=== PATIENT | male | born 1935 | race Caucasian/White ===

== ENCOUNTER 2021-06-28 20:35 | Observation (INO) | payer MEDICARE, SELFPAY ==
[2021-06-28 20:04] VITALS: BP 152/74; PULSE 82; RESP 20; TEMP 36.5; O2SAT 100; BMI 25.2
--- NOTE | 2021-06-28 20:51 | PCM.HP.STD ---
Documented by User: LAUREN Franklin 06/28/21 21:10 HPI - General General Date of Admission: 06/28/21 Date of Service: 06/28/21 Chief Complaint: Bleeding wound right buttock HPI Narrative ALLIE WINKLER, is a 85 M who presents from an outside ER due to bleeding. Patient's found patient lying in bed and noted that patient had a large amount of blood coming from his buttock/rectum and transported patient to [facility]. Physician at [facility] was not confident that the blood was coming from the [place] wound and they do not have GI coverage so he was transferred to [place]. Upon evaluation patient's wound is not currently bleeding however there is some purulent drainage noted. Patient also has a wound to his right ankle for which she was post be seen at the wound center tomorrow. Patient has a medical history that includes diabetes, A. fib, hyperlipidemia. [facility] Medical History Atrial fibrillation Dementia Diabetes Hyperlipidemia Home Medications apixaban [Eliquis] 5 mg PO BID 06/28/21 [History Last Taken 06/28/21] metformin 500 mg PO BIDCM 06/28/21 [History Last Taken 06/28/21] pravastatin 40 mg PO QHS 06/28/21 [History Last Taken 06/27/21] Allergy/AdvReac Type Severity Reaction Status Date / Time No Known Allergies Allergy Verified 06/28/21 20:11 Family History unable to obtain unable to obtain Surgical History H/O tooth extraction Social History Smoking Status: Never smoker ROS Constitutional Constitutional: Denies anorexia, chills, fatigue, malaise or weakness ENT HEENT: Reports hearing loss Cardiovascular Cardiovascular: Denies chest pain, edema, palpitations or syncope Respiratory/Chest Respiratory/Chest: Denies cough, shortness of breath at rest, shortness of breath with exertion or wheezing Gastrointestinal Gastrointestinal: Denies abdominal pain, constipation, diarrhea, melena, nausea or vomiting Genitourinary Genitourinary: Denies dysuria or hematuria Musculoskeletal Musculoskeletal: Denies back pain, extremity pain, joint pain or joint stiffness Integumentary Integumentary: Denies dry skin Neurologic Neurologic: Denies abnormal gait or abnormal speech Psychiatric Psychiatric: Reports cognitive impairment; Denies anxiety or depression Endocrine Endocrinology: Denies change in body appearance Hematologic/Lymphatic Hematologic/Lymphatic: Reports easy bleeding; Denies anemia Vital Signs Vital Signs Vital Signs: 06/28/21 20:04 Temperature 97.7 F L Temperature Source Oral Pulse Rate 82 Respiratory Rate 20 H Blood Pressure 152/74 H Blood Pressure Mean 100 Blood Pressure Source Monitor Blood Pressure Position Semi-Fowlers Blood Pressure Location Right Arm Pulse Ox 100 Oxygen Delivery Method Room Air Weight Weight: 186 lb 8.177 oz Body Mass Index (BMI) 25.2 Physical Exam Const alert and no apparent distress General Appearance: cooperative Orientation / Consciousness: oriented to person and confused Exam Limitations: altered mental status HEENT normocephalic and head/scalp atraumatic Eyes conjunctivae normal and no scleral icterus Neck supple General: trachea midline Lymph Lymphatic: no lymphadenopathy noted Resp normal respiratory effort, normal air movement and clear to auscultation bilaterally Cardio S1 normal heart sound, S2 normal heart sound and peripheral pulses 2+ throughout Rhythm: abnormal rhythm irregularly irregular GI normal to inspection, nondistended, normoactive bowel sounds, soft to palpation and non-tender Extremity normal capillary refill and no clubbing, cyanosis or edema General Extremity: no tenderness to palpation of joints or extremities Skin Skin Narrative: 5 x 6 sacral wound, no longer bleeding however there is a small amount of purulent drainage noted. Large reddened area to lateral side of right ankle, nondraining, peeling. General Skin Exam: turgor normal Neuro no focal motor deficits and no sensory deficits noted Speech: speech normal Motor Exam: Negative for general weakness Psych cooperative Appearance: appropriate Attitude: calm Speech: loud Results Lab / Micro Data Result Diagrams: 06/29/21 04:52 06/29/21 04:52 Assessment & Plan Assessment/Plan (1) Wound of left buttock: QUALIFIERS: Encounter type: initial encounter Qualified Code(s): S31.829A - Unspecified open wound of left buttock, initial encounter (2) Cellulitis of right ankle: PLAN: 1. Wound of left buttock -Admit to [facility] -Wound nurse consulted -Dry sterile dressing changes ordered pending wound nurse consult -Area does not appear to be actively bleeding at this time. -Will trend hemoglobin and hematocrit every 4 hours -Patient received vancomycin and Zosyn at outside facility, will continue pending culture results. -Pain medication regimen ordered including Tylenol, oxycodone -MRSA and wound culture ordered -CBC, BMP, mag, Phos ordered for a.m. -Laboratory values reviewed from outside facility: Hemoglobin and hematocrit 11.8/35.8, platelet 273, white blood cell count 8.5, PTT 33, PT 18.1, INR 1.6, glucose 171, sodium 131, BUN 10, creatinine 0.85, troponin negative. Covid PCR negative, influenza AMB negative. 2. Cellulitis of the right ankle -Wound nurse consulted -Currently does not appear to be draining -Patient initiated on vancomycin and Zosyn at outside facility will continue due to multiple wounds -MRSA and wound culture ordered 3. Diabetes mellitus type 2 -We will hold patient's p.o. Metformin regimen -ACHS blood sugars with sliding scale insulin ordered 4. Hyperlipidemia -Continue pravastatin 5. Atrial fibrillation -Patient not currently on a rate control medication however patient is on Eliquis which will be held due to bleeding wound to sacrum DVT prophylaxis-not indicated due to bleeding This patient was seen by LAUREN Franklin under the supervision of Dr. Garcia. 33 minutes spent in clinical coordination of patient's plan of care. Documented by User: Dr. Steven Garcia MD 06/29/21 06:23 HPI - General General Date of Admission: 06/28/21 [facility] Medical History Atrial fibrillation Dementia Diabetes Hyperlipidemia Home Medications apixaban [Eliquis] 5 mg PO BID 06/28/21 [History Last Taken 06/28/21] metformin 500 mg PO BIDCM 06/28/21 [History Last Taken 06/28/21] pravastatin 40 mg PO QHS 06/28/21 [History Last Taken 06/27/21] Allergy/AdvReac Type Severity Reaction Status Date / Time No Known Allergies Allergy Verified 06/28/21 20:11 Family History unable to obtain Surgical History H/O tooth extraction Social History Smoking Status: Never smoker Results Lab / Micro Data Result Diagrams: 06/29/21 04:52 06/29/21 04:52 Charges/Coding Addendum Addendum: Patient seen and examined agree with above assessment plan
[2021-06-28 22:01] LABS: Bedside Glucose 156 mg/dL (70-110)
[2021-06-28] MEDS: Glucerna Shake 120 ML LIQUID PO (22:01)
[2021-06-28] MEDS: Pravastatin 40 MG Tablet PO (22:02)
--- NOTE | 2021-06-28 22:28 | PHA.PHARE_ITS ---
Consult Pharmacy has been consulted to manage selected antiobiotic: Vancomycin Type of Consult: New start Suspected Infection: Skin/Soft tissue Prior Doses of Antibiotics Received/Current Regimen: Medications Vancomycin HCl (Vancomycin) 1,000 mg in 200 mls @ 200 mls/hr IV Q12H ALDO Weight used for dosin.6 kg Estimated Creatinine Clearance: 78 Goal Trough: 10-15 mcg/mL Pharmacy Plan for Drug Dosing: An initial vancomycin dose of 1500mg was given at [facility] 06/28/21 @1609. Dosing was continued from this at 1000mg q12h. A trough level will be drawn prior to 4th total dose. Pharmacy Service will continue to monitor and adjust dosing as required. Follow-Up Labs: Trough Vancomycin Labs to be done on [date and time ordered]: 06/30/21 @0331
[2021-06-28 22:43] LABS: Hemoglobin 11.5 g/dL (13.0-16.5)
[2021-06-28 23:12] LABS: M R Staph aureus DNA By PCR Negative (Negative); Probe Check PASS; Specimen Processing Control PASS; Staph aureus DNA By PCR NEGATIVE (Negative)
[2021-06-28 23:13] LABS: M R Staph aureus DNA By PCR Negative (Negative); Probe Check PASS; Specimen Processing Control PASS; Staph aureus DNA By PCR NEGATIVE (Negative)
[2021-06-29] VITALS (8 sets, daily range): BP systolic 99–126; BP diastolic 56–71; PULSE 71–81; RESP 16–18; TEMP 36.6–37.2; O2SAT 94–97
[2021-06-29 00:15] LABS: Hematocrit 31.6 % (40-54); Hemoglobin 10.7 g/dL (13.0-16.5)
[2021-06-29] MEDS: 0.9% Saline Lock 10 ML Syringe IV (04:10)
[2021-06-29] MEDS: Vancomycin IV 1,000 MG/200 ML BAG 200 MG IV ×2 (04:10→15:34)
[2021-06-29 05:00] LABS: Absolute Lymphocyte Count 1.46 X10^3/uL (0.83-4.51); Absolute Neutrophil Count 5.7 X10^3/uL (2.0-7.7); Basophil# 0.02 X10^3/uL; Basophil% 0.2 % (0-1); Eosinophil# 0.15 X10^3/uL; Eosinophils% 1.9 % (0-5); Hematocrit 33.1 % (40-54); Hemoglobin 11.2 g/dL (13.0-16.5); Lymphocyte # 1.46 X10^3/ul (0.83-4.51); Lymphocyte % 18.2 % (19-41); Mean Corp Hgb Conc 33.8 g/dL (32-36); Mean Corpuscular Hgb 31.5 pg (27.0-32.0); Mean Platelet Vol. 8.2 fl (6.2-12.0); Monocyte# 0.69 X10^3/uL; Monocyte% 8.6 % (0-10); NRBC Flagged by Analyzer 0 % (0-5); Neutrophil # 5.67 X10^3/uL (2.7-7.7); Neutrophil % 70.6 % (47-70); Platelet Count 254 K/mm3 (150-450); RBC Distribution Width CV 12.7 % (11.6-14.6); RBC Distribution Width SD 42.8 fl (35.1-43.9); Red Blood Count 3.56 M/mm3 (4.6-6.2)
[2021-06-29 05:30] LABS: Anion Gap 5 (5-15); BUN 11 mg/dL (7-18); BUN/Creat Ratio 11.6 RATIO (10-20); Calcium,Total 7.6 mg/dL (8.5-10.1); Chloride 103 mmol/L (98-107); Creatinine, Serum 0.95 mg/dL (0.70-1.30); EST Glomerular Filtration Rate 80 mL/min (>60); Est Glom Filt Rate - Afr Amer 97 mL/min (>60); Estimated Creatinine Clearance 64.67 ml/min; Glucose 164 mg/dL (74-106); Phosphorus 2.9 mg/dL (2.5-4.9); Potassium 3.8 mmol/L (3.5-5.1); Sodium Level 135 mmol/L (136-145)
[2021-06-29] MEDS: Insulin Lispro 100 UNIT/ML INSULN.PEN SC ×4 (06:44→20:58)
[2021-06-29 06:51] LABS: Bedside Glucose 230 mg/dL (70-110)
--- NOTE | 2021-06-29 07:08 | PCM.PN.HOSP ---
Subjective Subjective Patient is an 85-year-old gentleman who was admitted directly from [facility] with suspected GI bleed patient however was found to have bleeding from his. In region wounds. Admitted to regular nursing floor with consult placed wound care nurse Objective Data Objective Data Vital Signs: Vital Signs Temp Pulse Resp BP Pulse Ox 99 F 71 18 121/66 H 96 06/29/21 02:39 06/29/21 02:39 06/29/21 02:39 06/29/21 02:39 06/29/21 02:39 Oxygen Delivery Method Room Air Weight: 84.6 kg Body Mass Index (BMI) 25.2 Intake & Output: Intake and Output for Last 24 Hours 06/27/21 06/28/21 06/29/21 23:59 23:59 23:59 Intake Total 620 / 620 Balance 620 / 620 Lab / Micro Data Result Diagrams: 06/29/21 04:52 06/29/21 04:52 Labs: Laboratory Results - last 24 hr 06/28/21 21:35: S.aureus Protein A PCR NEGATIVE, MRSA (PCR) Negative 06/28/21 21:50: S.aureus Protein A PCR NEGATIVE, MRSA (PCR) Negative 06/28/21 21:54: POC Glucose 156 H 06/28/21 22:15: Hgb 11.5 L, Hct 35.0 L 06/29/21 00:12: Hgb 10.7 L, Hct 31.6 L 06/29/21 04:52: WBC 8.0, RBC 3.56 L, Hgb 11.2 L, Hct 33.1 L, MCV 93.0, MCH 31.5, MCHC 33.8, RDW Std Deviation 42.8, RDW Coeff of Dwain 12.7, Plt Count 254, MPV 8.2, Immature Gran % (Auto) 0.500, Neut % (Auto) 70.6 H, Lymph % (Auto) 18.2 L, [place] % (Auto) 8.6, Eos % (Auto) 1.9, Baso % (Auto) 0.2, Absolute Neuts (auto) 5.7, Absolute Lymphs (auto) 1.46, Nucleated RBC % 0 06/29/21 04:52: Sodium 135 L, Potassium 3.8, Chloride 103, Carbon Dioxide 27.0, Anion Gap 5, BUN 11, Creatinine 0.95, Estim Creat Clear Calc 64.67, Est GFR (MDRD) Af Amer 97, Est GFR (MDRD) Non-Af 80, BUN/Creatinine Ratio 11.6, Glucose 164 H, Calcium 7.6 L, Phosphorus 2.9, Magnesium Cancelled 06/29/21 06:39: POC Glucose 230 H Physical Exam Narrative GENERAL: cooperative HEENT: Atraumatic; EYES; Anicteric, Normal Conjunctiva NECK; supple, normal thyroid, RESPIRATORY: Diminished to auscultation CARDIOVASCULAR: Regular S1 S2, GI: soft, normoactive bowel sounds, : No Renal angle tenderness; EXTREMITIES: No edema, no clubbing, MUSCULOSKELETAL: no muscle wasting NEURO: Awake; no lateralizing signs. SKIN: Perianal region wounds dressed PSYCH; Flat affect Assessment & Plan Assessment/Plan (1) Wound of left buttock: QUALIFIERS: Encounter type: initial encounter Qualified Code(s): S31.829A - Unspecified open wound of left buttock, initial encounter (2) Cellulitis of right ankle: PLAN: Patient is an 85-year-old gentleman who was admitted directly from [facility] with suspected GI bleed patient however was found to have bleeding from his. In region wounds. Admitted to regular nursing floor with consult placed wound care nurse 1. 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 Admitted to regular nursing floor for wound and dressing changes with consultation placed to wound care nurse. Suspected cellulitis involving the right ankle ?Patient was started on antibiotics per protocol with cultures obtained. Patient MRSA screen was negative vancomycin is continued 3. Diabetes mellitus type II -patient's oral hypoglycemics held. Placed on long acting insulin, Accu-Cheks a.c. and at bedtime and covered with sliding scale insulin 4. Dyslipidemia -Patient is on statin therapy, continued at home dose 5. Paroxysmal A. fib -patient's rate is controlled on apixaban held in view of significant bleeding from his wounds 6. DVT prophylaxis ?Patient was on apixaban held in view of above Charges/Coding Visit Charges Inpatient E&M: 03829 Subs Hosp L2
[2021-06-29] MEDS: Glucerna Shake 120 ML LIQUID PO ×4 (09:16→20:57)
[2021-06-29 11:31] LABS: Bedside Glucose 214 mg/dL (70-110)
--- NOTE | 2021-06-29 11:38 | NURSING ---
multiple layers of dried skin flaking off
--- NOTE | 2021-06-29 11:45 | CASEMGMT ---
RN CM Face to Face with patient for initial transition planning/care coordination assessment. RN CM introduced self and role at [facility]. Patient sitting in chair, alert and oriented, at bedside. Patient willing to participate in assessment and is able to answer all questions appropriately. Care providers, pharmacy, and demographics verified. Patient and wish for patient to discharge home with possible HHC. If patient is needing assistance with transfers or ambulation, states she is not able to help and prefers patient to go to SNF. Will monitor progress with therapy to determine safe discharge disposition. Patient and state they have no further needs or concerns at this time. CM to follow for discharge planning needs that may arise. PCP: Cecille Specialists: [facility] Gynecology Physician Preferred Pharmacy: [facility] Insurance: [employer] ROBIN Prescription Benefit: yes Living Will/HPOA: yes, Chinyere OCHOAOK: , sister in law Living Arrangements: Patient lives with in a single story home with 5 steps and railing to enter the home. Patient was independent at home prior to present illness Transportation: , sister in law DME/HHC: Patient has raised toilet, built in shower seat, and walker. No previous HHC or SNF Disposition Plan: HHC vs SNF pending course of treatment and progress with therapy. Jessika WARNER, RN, CM
--- NOTE | 2021-06-29 14:48 | CASEMGMT ---
RN CM in to pt room, pt sitting up in chair. Patient was provided a list of [facility] providers including quality and resource use data and consistent with the patient?s preferred geographic region, medical needs, and insurance network should pt need. Pt states this RN CM will need to speak to his regarding this when time for a decision is to be made. Pt very [place].
[2021-06-29] MEDS: Juven (unflavored) Packet 1 PACKET PO (16:17)
[2021-06-29 16:25] LABS: Bedside Glucose 227 mg/dL (70-110)
[2021-06-29] MEDS: Pravastatin 40 MG Tablet PO (20:58)
[2021-06-29 21:56] LABS: Bedside Glucose 169 mg/dL (70-110)
[2021-06-30 03:17] VITALS: BP 112/42; PULSE 88; RESP 18; TEMP 36.8; O2SAT 95
[2021-06-30] MEDS: Vancomycin IV 1,000 MG/200 ML BAG 200 MG IV (03:53)
[2021-06-30] MEDS: 0.9% Saline Lock 10 ML Syringe IV ×2 (03:54→09:50)
[2021-06-30 04:11] LABS: Vancomycin, Trough Level 17.8 ug/mL (5.0-15.0)
[2021-06-30] MEDS: Insulin Lispro 100 UNIT/ML INSULN.PEN SC ×2 (06:20→11:23)
--- NOTE | 2021-06-30 06:26 | PCM.RX.CS ---
Consult Pharmacy has been consulted to manage selected antiobiotic: Vancomycin Type of Consult: Follow-up Suspected Infection: Skin/Soft tissue Prior Doses of Antibiotics Received/Current Regimen: Medications Vancomycin HCl (Vancomycin) 1,000 mg in 200 mls @ 200 mls/hr IV Q12H ALDO Last Admin: 06/30/21 05:36 Dose: Infused Documented by: Labs: Sodium 135 mmol/L (136-145) L 06/29/21 04:52 Potassium 3.8 mmol/L (3.5-5.1) 06/29/21 04:52 Chloride 103 mmol/L (98-107) 06/29/21 04:52 Carbon Dioxide 27.0 mmol/L (21.0-32.0) 06/29/21 04:52 Anion Gap 5 (5-15) 06/29/21 04:52 BUN 11 mg/dL (7-18) 06/29/21 04:52 Creatinine 0.95 mg/dL (0.70-1.30) 06/29/21 04:52 Est GFR (MDRD) Af Amer 97 mL/min (>60) 06/29/21 04:52 Est GFR (MDRD) Non-Af 80 mL/min (>60) 06/29/21 04:52 BUN/Creatinine Ratio 11.6 RATIO (10-20) 06/29/21 04:52 Glucose 164 mg/dL (74-106) H 06/29/21 04:52 Vancomycin Trough 17.8 ug/mL (5.0-15.0) H 06/30/21 03:40 Microbiology: Microbiology 06/28/21 21:50 Wound - Buttock Gram Stain - Final 06/28/21 21:50 Wound - Buttock Wound Culture - Preliminary No growth-Final to follow 06/28/21 21:35 Wound - Leg, Right Gram Stain - Final Weight used for dosin.6 kg Estimated Creatinine Clearance: 65 Goal Trough: 10-15 mcg/mL Pharmacy Plan for Drug Dosing: Vancomycin trough level of 17.8 was higher than the target range of 10-15. Level was drawn 12hrs post dose. Will continue same dosing of 1000mg q12h, and see if CrCl corrects back upward. Will re-draw a trough level in 2 days. Pharmacy Service will continue to monitor and adjust dosing as required. Follow-Up Labs: Trough Vancomycin Labs to be done on [date and time ordered]: 07/01/21 @5826
[2021-06-30 06:36] LABS: Bedside Glucose 152 mg/dL (70-110)
--- NOTE | 2021-06-30 07:40 | PCM.PN.HOSP ---
Subjective Subjective Patient has not experienced further bleeding from his wounds. Plans for patient to be discharged home with home health Objective Data Objective Data Vital Signs: Vital Signs Temp Pulse Resp BP Pulse Ox 98.2 F 88 18 112/42 L 95 06/30/21 03:17 06/30/21 03:17 06/30/21 03:17 06/30/21 03:17 06/30/21 03:17 Oxygen Delivery Method Room Air Weight: 84.6 kg Body Mass Index (BMI) 25.2 Intake & Output: Intake and Output for Last 24 Hours 06/28/21 06/29/21 06/30/21 23:59 23:59 23:59 Intake Total 1137.25 / 1137.25 339.25 / 339.25 Balance 1137.25 / 1137.25 339.25 / 339.25 Lab / Micro Data Result Diagrams: 06/29/21 04:52 06/29/21 04:52 Labs: Laboratory Results - last 24 hr 06/29/21 11:18: POC Glucose 214 H 06/29/21 16:16: POC Glucose 227 H 06/29/21 20:56: POC Glucose 169 H 06/30/21 03:40: Vancomycin Trough 17.8 H 06/30/21 06:18: POC Glucose 152 H Micro: Microbiology 06/28/21 21:50 Wound - Buttock Gram Stain - Final 06/28/21 21:50 Wound - Buttock Wound Culture - Preliminary No growth-Final to follow 06/28/21 21:35 Wound - Leg, Right Gram Stain - Final Physical Exam Narrative GENERAL: cooperative HEENT: Atraumatic; EYES; Anicteric, Normal Conjunctiva NECK; supple, normal thyroid, RESPIRATORY: Diminished to auscultation CARDIOVASCULAR: Regular S1 S2, GI: soft, normoactive bowel sounds, : No Renal angle tenderness; EXTREMITIES: No edema, no clubbing, MUSCULOSKELETAL: no muscle wasting NEURO: Awake; no lateralizing signs. SKIN: Perianal region wounds dressed PSYCH; Flat affect Assessment & Plan Assessment/Plan (1) Wound of left buttock: QUALIFIERS: Encounter type: initial encounter Qualified Code(s): S31.829A - Unspecified open wound of left buttock, initial encounter (2) Cellulitis of right ankle: PLAN: Patient is an 85-year-old gentleman who was admitted directly from [facility] with suspected GI bleed patient however was found to have bleeding from his. In region wounds. Admitted to regular nursing floor with consult placed wound care nurse 1. 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 Admitted to regular nursing floor for wound and dressing changes with consultation placed to wound care nurse. - Patient has not experienced further bleeding from his wounds. Plans for patient to be discharged home with home health 2. Suspected cellulitis involving the right ankle ?Patient was started on antibiotics per protocol with cultures obtained. Patient MRSA screen was negative vancomycin is continued 3. Diabetes mellitus type II -patient's oral hypoglycemics held. Placed on long acting insulin, Accu-Cheks a.c. and at bedtime and covered with sliding scale insulin 4. Dyslipidemia -Patient is on statin therapy, continued at home dose 5. Paroxysmal A. fib -patient's rate is controlled on apixaban held in view of significant bleeding from his wounds 6. DVT prophylaxis ?Patient was on apixaban held in view of above 8. Anemia ?Secondary to acute blood loss anemia from above patient did not require blood transfusion Charges/Coding Visit Charges Inpatient E&M: 69494 Subs Hosp L2
[2021-06-30 07:59] VITALS: BP 114/68; PULSE 73; RESP 23; TEMP 36.4; O2SAT 94
[2021-06-30 08:32] VITALS: O2SAT 95
[2021-06-30] MEDS: Glucerna Shake 120 ML LIQUID PO ×2 (09:32→13:34)
[2021-06-30] MEDS: Juven (unflavored) Packet 1 PACKET PO (09:32)
--- NOTE | 2021-06-30 10:02 | WOUNDNOTE ---
wound photo: bilateral buttocks
--- NOTE | 2021-06-30 10:12 | PCM.DC.SUM ---
Providers Date of Admission: 06/28/21 Primary Care Physician: Dr. Graeme Oden MD Consultations 06/28/21 20:55 Consult: Onc/Wound/entertainment usher Routine Comment: Reason for Consult:: wound buttock Reason For Visit: RIGHT LEG CELLULITIS, BLEEDING SACRAL WOUND Diagnosis Discharge Diagnosis (1) Wound of left buttock: Status: Acute Code(s): S31.829A - Unspecified open wound of left buttock, initial encounter Qualifiers: Encounter type: initial encounter Qualified Code(s): S31.829A - Unspecified open wound of left buttock, initial encounter (2) Cellulitis of right ankle: Status: Acute Code(s): L03.115 - Cellulitis of right lower limb Medications at Discharge Home Medications metformin 500 mg PO BIDCM 06/28/21 pravastatin 40 mg PO QHS 06/28/21 cefdinir 300 mg PO BID #10 cap 06/30/21 Hospital Course Summary of Care Provided Minutes Spent on Discharge: 35 Hospital Course: Patient is an 85-year-old gentleman who was admitted directly from [facility] with suspected GI bleed patient however was found to have bleeding from his. In region wounds. Admitted to regular nursing floor with consult placed wound care nurse 1. 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 Admitted to regular nursing floor for wound and dressing changes with consultation placed to wound care nurse. - Patient has not experienced further bleeding from his wounds. Plans for patient to be discharged home with home health 2. Suspected cellulitis involving the right ankle ?Patient was started on antibiotics per protocol with cultures obtained. Patient MRSA screen was negative vancomycin is continued 3. Diabetes mellitus type II -patient's oral hypoglycemics held. Placed on long acting insulin, Accu-Cheks a.c. and at bedtime and covered with sliding scale insulin 4. Dyslipidemia -Patient is on statin therapy, continued at home dose 5. Paroxysmal A. fib -patient's rate is controlled on apixaban held in view of significant bleeding from his wounds ?Patient to follow-up with primary care physician within a week to discuss resumption of systemic anticoagulation 6. DVT prophylaxis ?Patient was on apixaban held in view of above 8. Anemia ?Secondary to acute blood loss anemia from above patient did not require blood transfusion Physical Exam Narrative GENERAL: cooperative HEENT: Atraumatic; EYES; Anicteric, Normal Conjunctiva NECK; supple, normal thyroid, RESPIRATORY: Diminished to auscultation CARDIOVASCULAR: Regular S1 S2, GI: soft, normoactive bowel sounds, : No Renal angle tenderness; EXTREMITIES: No edema, no clubbing, MUSCULOSKELETAL: no muscle wasting NEURO: Awake; no lateralizing signs. SKIN: Perianal region wounds dressed PSYCH; Flat affect Weight / BMI Weight Weight: 84.6 kg Body Mass Index (BMI) 25.2 ABG / Lab / Microbiology Data Result Diagrams: 06/29/21 04:52 06/29/21 04:52 Laboratory: Laboratory Results - last 24 hr 06/29/21 11:18: POC Glucose 214 H 06/29/21 16:16: POC Glucose 227 H 06/29/21 20:56: POC Glucose 169 H 06/30/21 03:40: Vancomycin Trough 17.8 H 06/30/21 06:18: POC Glucose 152 H Microbiology: Microbiology 06/28/21 21:50 Wound - Buttock Gram Stain - Final 06/28/21 21:50 Wound - Buttock Wound Culture - Preliminary Mixed Gram Positive Organisms 06/28/21 21:35 Wound - Leg, Right Gram Stain - Final 06/28/21 21:35 Wound - Leg, Right Wound Culture - Preliminary Mixed Gram Positive Organisms D/C Instructions Discharge Diet: No restrictions Discharge Activity: Return to Normal Activity Call your doctor if you observe: Fever of 101 or Higher, Shortness of breath, Fainting spells and Chest pain Meaningful Use Info Meaningful Use Diagnoses (Choose all that apply): None applicable Discharge Plan Admission Admit Date/Time: 06/28/21 20:35 Attending Provider: Graeme Jordan Primary Care Provider: Graeme Oden Discharge Orders/Prescriptions Prescriptions: New cefdinir 300 mg capsule 300 mg PO BID Qty: 10 RF: 0 Continued pravastatin 40 mg tablet 40 mg PO QHS RF: 0 metformin 500 mg tablet extended release 24 hr 500 mg PO BIDCM RF: 0 Discontinued Eliquis 5 mg tablet 5 mg PO BID RF: 0 Referrals / Follow Up: Graeme Oden MD [Primary Care Provider] - In 1 Week Disposition Disposition (needs filled in before D/C Order can be placed): Home Health Service Charges/Coding Visit Charges Inpatient E&M: 23112 Disch Hosp
[2021-06-30 10:34] VITALS: O2SAT 98
--- NOTE | 2021-06-30 11:34 | CASEMGMT ---
Addendum entered by Daysi Costa 06/30/21 15:13: Received acceptance from [facility], SOC will be tomorrow. Addendum entered by Daysi Costa 06/30/21 14:55: Received tc back from [place] who states they are unable to accept pt. TC to [facility], referral left on . Will await acceptance. Addendum entered by Daysi Costa 06/30/21 14:22: TC to [facility] again to see if able to accept pt. They have not heard back from their nurse. Received tc from pt who is concerned about taking pt home. She states she cannot help him much. Made her aware how pt did with PT today and that [facility] will be ordered for SN and OT. She states pt will not let her help with the wounds. BETO WOOD in to pt room to update on HHC. He states he will allow his to assist him at home. Asked if pt would be agreeable to a [facility], pt denies need for this. TC to [facility] also for referral, faxed and will await acceptance. Addendum entered by Daysi Costa 06/30/21 12:01: Received tc back from [facility] who states they are not accepting any patients out of their system. TC to [facility], the earliest SOC could be would be next week. TC to [facility], they are unable to accept pt in [facility]. TC back to [facility] for referral. Fátima will check availability and call this BETO WOOD back. Original Note: BETO WOOD in to pt room. Pt sitting up in chair. Pt is agreeable to [facility]. Noted PT did not recommend therapy but OT did. Pt has pressure ulcers. Discussed SN and OT. Pt chose [facility] first and [facility] as second choice. TC to [facility], spoke with [facility]. She asked for referral to be faxed and she will call back with acceptance.
[2021-06-30 12:15] LABS: Bedside Glucose 236 mg/dL (70-110)
[2021-06-30 13:26] LABS: MG Sendout 1.9 mg/dL (1.6-2.3)
[2021-06-30 13:39] VITALS: BP 125/64; PULSE 70; RESP 24; TEMP 36.6; O2SAT 94
--- NOTE | 2021-07-02 12:02 | CASEMGMT ---
Addendum entered by Saqib Morrissey 07/02/21 15:52: Faxed confirmation received that below faxed info to Dr Oden's office went through successfully. Original Note: Received tc from 's office requesting information regarding pt. Elisha DE LUNA asked if SW saw pt during hospital stay. Made her aware that RN CM saw pt but not SW. She asked for notes from RN CM, faxed at this time. Also gave her a synopsis of services pt was set up with at home.
== END 2021-06-30 16:28 | disposition home health service (06) | DRG 603 ==
PROVIDERS: Family Medicine; Nurse Practitioner Family; Admitting Provider Internal Medicine; PCP Family Medicine; Visit Provider Internal Medicine
DX: L03.115 Cellulitis of right lower limb (principal); F03.90 Unspecified dementia, unspecified severity, without behavioral disturbance, psychotic disturbance, mood disturbance, and anxiety; I48.0 Paroxysmal atrial fibrillation; E11.9 Type 2 diabetes mellitus without complications; E78.5 Hyperlipidemia, unspecified; S31.829A Unspecified open wound of left buttock, initial encounter; Z79.84 Long term (current) use of oral hypoglycemic drugs; Z79.01 Long term (current) use of anticoagulants; Z79.899 Other long term (current) drug therapy; D62 Acute posthemorrhagic anemia
CPT/HCPCS: 36415; 80048; 80202; 82962; 83735; 84100; 85014; 85018; 85025; 87070; 87077; 87186; 87205; 87640; 96365; 96366; 97161; 97166; 97530; 97535; 97802; 99218; J7050; A4216; G0378; G0379

== ENCOUNTER 2021-08-12 11:00 | Outpatient (RCR) | payer MEDICARE, SELFPAY ==
--- NOTE | 2021-07-22 13:20 | HP.PCM_ITS ---
History of Present Illness Date of Service: 07/22/21 Chief Complaint: Right lateral leg wound History of Wound: This is a 85-year-old male who presents to the wound care clinic for a right lateral leg wound and chronic dry skin to bilateral legs complicated by dementia and diabetes mellitus type 2. He presents with his son today and states they were seeing a steam fitter helper in [place] who prescribed a hydrating lotion to be applied to both feet and legs twice a day. Son states that his dad was admitted to the hospital for a sacral wound and they suggested he follow-up upon discharge in the wound care center for his right lateral leg wound. Patient's son states that his dad will not apply the lotion and does not like to shower likely due to his progressing dementia. Patient denies any nausea, vomiting, fever, chills or other constitutional symptoms. Son states that his dad does not demonstrate any nausea, vomiting, fever that he is aware of. Son states that he has difficulty caring for his dad as he is not living in the same household. He states that his mother is also unable to care for his father as she is aging as well. They have no other complaints today. [facility] Medical History (Updated 07/22/21 @ 13:[address] Warren Da Silva, DPToro) Atrial fibrillation Dementia Diabetes Hyperlipidemia Home Medications metformin 500 mg PO BIDCM 06/28/21 [History Last Taken 06/28/21] pravastatin 40 mg PO QHS 06/28/21 [History Last Taken 06/27/21] cefdinir 300 mg PO BID #10 cap 06/30/21 [Rx Last Taken Unknown] Allergy/AdvReac Type Severity Reaction Status Date / Time No Known Allergies Allergy Verified 06/28/21 20:11 Surgical History H/O tooth extraction Social History Smoking Status: Never smoker ROS Constitutional Constitutional: Denies chills, fatigue, fever(s) or weakness Eyes Eyes: Denies blurry vision, change in vision or double vision ENT HEENT: Denies headache(s), nasal congestion, nasal discharge or sore throat Cardiovascular Cardiovascular: Denies chest pain, dyspnea or palpitations Respiratory/Chest Respiratory/Chest: Denies cough, shortness of breath at rest or wheezing Gastrointestinal Gastrointestinal: Denies abdominal pain, constipation, diarrhea, nausea or vomiting Musculoskeletal Musculoskeletal: Denies joint pain, joint stiffness, joint swelling or tingling Integumentary Integumentary: Reports dry skin; Denies jaundice, lesions, pruritus or rash Neurologic Neurologic: Reports behavior changes, confusion, memory loss and other Details: Son states his father has dementia ; Denies numbness, seizures or tingling Psychiatric Psychiatric: Denies anxiety or depression Endocrine Endocrinology: Denies cold intolerance or heat intolerance Hematologic/Lymphatic Hematologic/Lymphatic: Denies easy bleeding or easy bruising Physical Exam Const alert and no apparent distress General Appearance: cooperative and comfortable HEENT normocephalic Eyes General Eye: normal appearance of both eyes Neck General: normal visual inspection Lymph Lymphatic: no lymphadenopathy noted and no lymphedema noted Chest inspection of chest normal Resp normal respiratory effort Cardio regular rate and regular rhythm Extremity Peripheral Pulses: Yes posterior tibial pulses present bilateral and dorsalis pedis pulses present bilateral Skin no rashes or lesions noted Skin Narrative: Severely xerotic skin noted dorsal foot and digits extending proximally to the mid tibial shaft bilaterally. Right anterior lateral lower extremity abrasions are stable with no localized signs of infection. Rubor noted bilateral lower extremities about the mid tibial shaft. General Skin Exam: elasticity normal, atrophy and dry skin Wound Narrative: Multiple abrasions right lower extremity anterior lateral are stable with no localized signs of infection with surrounding rubor. Neuro moves all extremities Motor Exam: strength 5/5 throughout Debridement Note Debridement Note No debridement was completed: No debridement was completed today Assessment/Plan Assessment/Plan (1) Abrasion, right lower leg, initial encounter: CODE(S): S80.811A - Abrasion, right lower leg, initial encounter (2) Acute venous stasis dermatitis of both lower extremities: CODE(S): I87.2 - Venous insufficiency (chronic) (peripheral) (3) Xerosis cutis: CODE(S): L85.3 - Xerosis cutis (4) Dementia: CODE(S): F03.90 - Unspecified dementia without behavioral disturbance (5) Diabetes: CODE(S): E11.9 - Type 2 diabetes mellitus without complications PLAN: This is an 85-year-old male with right lateral leg wound and chronic dry skin to bilateral legs complicated by dementia and diabetes mellitus type 2. He is present with his son today who cites progressing difficulty in caring for his father as his father refuses to shower and be compliant in taking his medications. Multiple right anterior lateral leg abrasions noted to be stable with no erythema, purulent drainage, malodor, or other localized signs of infection. Bilateral lower extremities demonstrate localized rubor about the mid tibial shaft with chronic severe xerosis to the lower extremities and dorsal foot. I discussed with the son that he is to be applying a hydrating lotion to the lower legs and foot twice a day but not to place the lotion between the toes. Son states that he was seeing a steam fitter helper in [place] who had prescribed a hydrating lotion that they are to order picker/assembler today. I discussed with him that the abrasion sites are stable with no localized signs of infection and they are to continue dressing the sites with Adaptic dry sterile dressings daily and to add Tubigrip compression socks to aid in edema control. He is to continue with the Tubigrip compression stockings daily. He is to continue to remain active and walking and to dorsiflex and plantarflex the foot to aid in blood and fluid return via the calf muscle. He is also to elevate the lower extremities at times of rest. I discussed with his son that he is to try his best in getting his dad daily showers/baths to remove excess dried skin buildup and to keep the wound sites clean. I discussed he is to dry well between his toes following shower or bath. I discussed that his dad is to keep good nutritional status and to ensure his dad has adequate fluid intake to allow for proper hydration. I discussed with good hydration and applying twice daily hydrating lotion that he could get the dry skin to resolve. I discussed with the son localized signs of infection to observe for. He is instructed if he notices increased redness moving up the leg towards the knee, increased pain, purulent drainage from the abrasion sites, malodor, or other localized signs of infection or if he notices any fever, nausea, vomiting, increased pain not controlled by [id number] pain medications to report to the ED as these are signs of a progressing infection. Patient's son voices understanding of this. Patient has palpable pedal pulses bilaterally. I will continue to monitor patient's progress in the wound center. I reviewed and discussed his case today. Debridement was performed today as noted in the clinical panel to all of the ulcer sites. The following work up and care recommendations were made: Dressing: Adaptic dry sterile dressings and Tubigrip stocking right lower extremity, Tubigrip stocking left lower extremity Wash: Soap and water Tissue growth optimization: None Offload: Tubigrip stocking Vascular: Palpable pedal pulses bilaterally Edema: Tubigrip stocking and elevation of the lower extremities at times of rest Infection: No localized signs of infection Pain: Patient may take [id number] Tylenol extra strength for any pain or discomfort Host factors: Diabetes mellitus type 2, dementia I answered all the patient's questions. To return to the wound healing center in 2 weeks or call sooner if the patient has any questions or concerns. The problems addressed require a low medical decision making level which includes two or more minor problems, a stable chronic illness, or an acute uncomplicated illness or injury. The medical decision making level is low. There is noted low risk of morbidity after considering this treatment plan and diagnostic data. Note: [employer] speech recognition dispensary attendant software was used to create portions of this document. Sound-alike and misspelled words, as well as other dispensary attendant errors may be contained in the documentation.
[2021-07-22 13:37] VITALS: BP 159/78; PULSE 85; RESP 18; TEMP 36.2; BMI 25.7
[2021-08-12 11:26] VITALS: BP 160/90; PULSE 72; RESP 16; TEMP 36.4; BMI 25.7
--- NOTE | 2021-08-12 16:08 | PN.PCM_ITS ---
History of Present Illness Date of Service: 08/12/21 Chief Complaint: Right lateral leg wound History of Wound: This is a 85-year-old male who presents to the wound care clinic for a right lateral leg wound and chronic dry skin to bilateral legs complicated by dementia and diabetes mellitus type 2. He presents with his son today and states they were seeing a program and research coordinator in [place] who prescribed a hydrating lotion to be applied to both feet and legs twice a day. Son states that his dad was admitted to the hospital for a sacral wound and they suggested he follow-up upon discharge in the wound care center for his right lateral leg wound. Patient's son states that his dad will not apply the lotion and does not like to shower likely due to his progressing dementia. Patient denies any nausea, vomiting, fever, chills or other constitutional symptoms. Son states that his dad does not demonstrate any nausea, vomiting, fever that he is aware of. Son states that he has difficulty caring for his dad as he is not living in the same household. He states that his mother is also unable to care for his father as she is aging as well. They have no other complaints today. Subjective Subjective This is an 85-year-old male who presents to the wound care clinic for a follow- up of a right lateral leg wound and chronic dry skin to bilateral legs complicated by dementia and diabetes mellitus type 2. He is accompanied by his son today who states they have been applying the lotion to the legs and dressing with compression stockings. Patient denies any nausea, vomiting, fever, chills or other constitutional symptoms. Patient and son have no complaints today. Objective Data Objective Data Vital Signs: Vital Signs Temp Pulse Resp BP 97.6 F L 72 16 160/90 H 08/12/21 11:26 08/12/21 11:26 08/12/21 11:26 08/12/21 11:26 Weight: 86.183 kg Body Mass Index (BMI) 25.7 Physical Exam Const alert and no apparent distress General Appearance: cooperative and comfortable HEENT normocephalic Eyes General Eye: normal appearance of both eyes Neck General: normal visual inspection Lymph Lymphatic: no lymphadenopathy noted and no lymphedema noted Chest inspection of chest normal Resp normal respiratory effort Cardio regular rate and regular rhythm Skin no rashes or lesions noted Skin Narrative: Severely xerotic skin noted dorsal foot and digits extending proximally to the mid tibial shaft bilaterally. Right anterior lateral lower extremity abrasions are stable with no localized signs of infection. Rubor noted bilateral lower extremities about the mid tibial shaft. General Skin Exam: elasticity normal, atrophy and dry skin Wound Narrative: Multiple abrasions right lower extremity anterior lateral are stable with no localized signs of infection with surrounding rubor. Neuro moves all extremities Motor Exam: strength 5/5 throughout Debridement Note Debridement Note No debridement was completed: No debridement was completed today Post-Debridement Measurements and Additional Note: Post-Debridement Measurements/Treatment - Nurse 1 - General Ulcer Assessment Start: 07/22/21 10:03 Freq: Status: Active Protocol: [email or web address] Activity Type Activity Date Activity User E-Sign Co-Sign Detail Recorded Client Recorded Date Recorded By Document 07/22/21 13:37 [id number] 07/22/21 13:44 Document 08/12/21 11:26 [id number] 08/12/21 11:36 07/22/21 08/12/21 13:37 11:26 - Today's Visit Information Type of service Initial Visit Follow-up Visit (Physician/[employer] [employer] [facility] ) Arrival Mode Ambulatory Ambulatory Accompanied by stepson Patient Identification Verified (Name & Yes Yes ) Patient Requires Transmission-Based No No Precautions Height and Weight Height 6 ft Weight 86.183 kg Weight in Pounds 190.0 lbs Weight Measurement Method Estimated by Patient Body Mass Index (BMI) 25.7 25.7 BMI Classification Overweight Overweight BSA - Zelda 2.08 Vital Signs Temperature (97.8 F-99.1 F) 97.1 F L 97.6 F L Temperature Source Temporal Temporal Pulse Rate (60-100) 85 72 Pulse Location Monitor Monitor Respiratory Rate (12-18) 18 16 Respiratory rate source Observation Observation Blood Pressure (90/60-120/80) 159/78 H 160/90 H Blood Pressure Mean (mm Hg) 105 113 Source Monitor Monitor Position Semi-Fowlers Semi-Fowlers Blood Pressure Location Right Arm Left Arm Have you changed medications since your No last visit? Any new allergies or adverse reactions No Signs or symptoms of abuse and/or No neglect since last visit Have you been in the hospital since your No last visit? Has dressing in place as prescribed Yes Has compression in place as prescribed Yes Has offloadiing in place as prescribed N/A Experienced any changes in pain level or No management History Since Last Visit- (Skip if this is Patient's initial visit) Left Footwear Regular Shoe Regular Shoe Right Footwear Regular Shoe Regular Shoe Pain Scale: 0-10 Numeric Is Patient Pain Free? Yes Yes Communication Assessment Preferred language Belarusian Cement Or Concrete Finishing Supervisor Required No Able to Read Yes Able to Write Yes Communication Tools None Caregiver Communication Skills Unable To Impairment Follow Commands Right Hearing Abillity Use of Hearing Aid Left Hearing Abillity Use of Hearing Aid Visual Assistive Devices Glasses Teaching Assessment Barriers to Learning Unable to Comprehend, Knowledge Deficit,Low Literacy Readiness To Learn Poor Willingness to Engage in Self Management Low Activies Readiness to Engage in Self Management Low Activities Anxiety Level Calm Cooperation Cooperative Perception Confused Interest in Health Problem Uninterested Education Importance Denies Need Does Patient Smoke tobacco or other No substances Is Patient Diabetic Yes Functional Assessment Recent Decline in Ability to Perform Denies Any Declines, Ambulation, Eating/Feeding, Lower Body Dressing, Toileting,Upper Body Dressing Culture/Sikh/Steam Fitter Cultural/Sikh Needs that may affect No Treatment Plan Would you allow our hospital finish mill operator to No meet you for the purpose of spiritual/ emotional support? Steam Fitter to contact place of anglican No Teaching: Wound Center [facility] Orientation/ Contacting Physician -Person Taught Patient,Family -Teaching Method Discussion, Demonstration -Response to teaching Return demonstration, Verbalize understanding - Nurse 1 - General Ulcer Measurement Start: 07/22/21 10:03 Freq: Status: Active Protocol: Activity Type Activity Date Activity User E-Sign Co-Sign Detail Recorded Client Recorded Date Recorded By Document 07/22/21 13:37 [id number] 07/22/21 13:44 Document 08/12/21 11:26 [id number] 08/12/21 11:36 07/22/21 08/12/21 13:37 11:26 Wound Center Nurse 1 1-right lateral leg cluster -Combined with other wound No No -Current Size (cm) - Length 6.0 0.1 -Current Size (cm) - Width 1.8 0.1 -Current Size (cm) - Depth 0.1 0.1 -Total Square Cm 10.80 0.01 -Photo Taken Yes No -Epithelialization Medium 34-66% Large 67-100% -Tunneling No No -Undermining/Tunneling No No -Circular Undermining No No -Classification - Winston Grading ( Grade 2 Diabetic Ulcer) -Exudate Amt Small -Exudate Type Serosanguineous -Wound Margin Flat & Intact -Granulation Amt Medium (34-66%) Large (67-100%) -Granulation Quality Red Red -Slough/Fibrin Yes No -Necrosis Amt Small (1-33%) -Necrotic Tissue Type Adherent Slough -Structure Exposed N/A N/A -Texture (Sophia-wound Skin Appearance) Assessed, Assessed, Localized Edema Localized Edema -Moisture (Sophia-wound Skin Appearance) Assessed,Dry/ Assessed,Dry/ Scaly Scaly -Color (Sophia-wound Skin Appearance) Assessed Assessed -Temperature (Sophia-wound Skin No Abnormality No Abnormality Appearance) (Pt Warm) (Pt Warm) -Tenderness on Palpation (Sophia-wound Yes No Skin Appearance) -Ulcer Cleansing Rinsed/ Rinsed/ Irrigated with Irrigated with Saline Saline -Foul Odor after Cleansing No -Anesthetic Used 4% Lidocaine Solution Lower Limb Edema Present Yes Yes Right Calf (cm) 35.5 36.6 Right Ankle (cm) 21.7 23.0 Left Calf (cm) 34.4 Left Ankle (cm) 22.2 WC - Nurse 2 - General Ulcer CM Notes Start: 07/22/21 10:03 Freq: Status: Active Protocol: Activity Type Activity Date Activity User E-Sign Co-Sign Detail Recorded Client Recorded Date Recorded By Document 08/12/21 13:[address] [id number] 08/12/21 13:41 PL 08/12/21 13:41 Wound Center Nurse 2 1-right lateral leg cluster -Procedure Performed No -Wound/Ulcer Outcome Healed- Epithelialized Pain Scale: 0-10 Numeric Is Patient Pain Free? Yes - Nurse 3 - General Ulcer D/C NN Start: 07/22/21 10:03 Freq: Status: Active Protocol: Activity Type Activity Date Activity User E-Sign Co-Sign Detail Recorded Client Recorded Date Recorded By Document 07/22/21 15:27 AK [id number] 07/22/21 15:29 AK 07/22/21 15:27 Wound Care Nurse 3 1-right lateral leg cluster -Ulcer Cleansing Rinsed/ Irrigated with Saline -Foul Odor after Cleansing No -Negative Pressure Wound Therapy N/A -Primary Dressing Applied Promogran Angelina Matter -Primary Dressing Covered/Secured with Dry Gauze, Secured with Tape -Promogran Angelina Matter 1 Pain Scale: 0-10 Numeric Is Patient Pain Free? Yes WC - Visit Discharge Discharge Condition Stable Ambulatory Status Ambulatory Transportation Private Auto Accompanied by son Medication Reconcilliation completed & Yes provided to patient/care provider Clinical Summary of Care Provided Yes Notes: lotion applied bilaterally Assessment/Plan Assessment/Plan (1) Abrasion, right lower leg, initial encounter: CODE(S): S80.811A - Abrasion, right lower leg, initial encounter (2) Acute venous stasis dermatitis of both lower extremities: CODE(S): I87.2 - Venous insufficiency (chronic) (peripheral) (3) Xerosis cutis: CODE(S): L85.3 - Xerosis cutis (4) Dementia: CODE(S): F03.90 - Unspecified dementia without behavioral disturbance (5) Diabetes: CODE(S): E11.9 - Type 2 diabetes mellitus without complications PLAN: This is an 85-year-old male with right lateral leg wound and chronic dry skin to bilateral legs complicated by dementia and diabetes mellitus type 2. He is present with his son today who cites progressing difficulty in caring for his father as his father refuses to shower and be compliant in taking his medications. Multiple right anterior lateral leg abrasions noted to be stable with eschar covering and no erythema, purulent drainage, malodor, or other localized signs of infection. 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 I discussed with the son that he is to continue applying a hydrating lotion to the lower legs and foot twice a day but not to place the lotion between the toes. Son states that he was seeing a program and research coordinator in [place] who had prescribed a hydrating lotion that they are using. I discussed with him that the abrasion sites are stable with no localized signs of infection. I instructed the son to continue applying daily Tubigrip compression socks to aid in edema control. He is to continue to remain active and walking and to dorsiflex and plantarflex the foot to aid in blood and fluid return via the calf muscle. He is also to elevate the lower extremities at times of rest. I discussed with his son that he is to try his best in getting his dad daily showers/baths to remove excess dried skin buildup and to keep the wound sites clean. I discussed he is to dry well between his toes following shower or bath. I discussed that his dad is to keep good nutritional status and to ensure his dad has adequate fluid intake to allow for proper hydration. I discussed with good hydration and applying twice daily hydrating lotion that he could get the dry skin to resolve. Patient has palpable pedal pulses bilaterally. At this time his wounds are healed and stable and he will be discharged from the wound care center. He is instructed to follow-up with his program and research coordinator in [place] for routine foot and ankle care. I answered all the patient and son's questions. Dr. Warren Da Silva Jr. D.P.M. Foot [facility] ankle Center [facility] [phone] The problems addressed require a low medical decision making level which includes two or more minor problems, a stable chronic illness, or an acute uncomplicated illness or injury. The medical decision making level is low. There is noted low risk of morbidity after considering this treatment plan and diagnostic data. Note: [email or web address] speech recognition education courses sales representative software was used to create portions of this document. Sound-alike and misspelled words, as well as other education courses sales representative errors may be contained in the documentation.
== END 2021-08-19 23:59 | disposition home or self-care (01) ==
LOC: WC 11:00
PROVIDERS: PCP Family Medicine; Visit Provider Nurse Practitioner Family
DX: S80.811A Abrasion, right lower leg, initial encounter (principal); F03.90 Unspecified dementia, unspecified severity, without behavioral disturbance, psychotic disturbance, mood disturbance, and anxiety; E11.9 Type 2 diabetes mellitus without complications; X58.XXXA Exposure to other specified factors, initial encounter; E78.5 Hyperlipidemia, unspecified; I87.2 Venous insufficiency (chronic) (peripheral); L85.3 Xerosis cutis; Z79.84 Long term (current) use of oral hypoglycemic drugs; Z79.899 Other long term (current) drug therapy
CPT/HCPCS: 99213; G0463

== ENCOUNTER 2021-09-10 10:45 | Outpatient (RCR) | payer MEDICARE, SELFPAY ==
[2021-08-20 00:08] VITALS: BP 160/90; PULSE 72; RESP 16; TEMP 36.4; BMI 25.7
--- NOTE | 2021-08-20 10:44 | PCM.WC.PN ---
History of Present Illness Date of Service: 08/20/21 Chief Complaint: Left buttock History of Wound: Clint is an 85-year-old male who [facility] his left buttock ulcer. He was seen by Dr. Da Silva (podiatry) [facility] in July 2021 for evaluation and treatment of a right leg abrasion, which has since healed. He is now transferring to my care. He has a PMH significant for previous tobacco use (quit many years ago), hyperlipidemia, dementia, and T2DM (non-insulin dependent). He presents with his son today. Patient's son states that his dad will not apply the lotion and does not like to shower likely due to his progressing dementia. Patient denies any nausea, vomiting, fever, chills or other constitutional symptoms. Son states that his dad does not demonstrate any nausea, vomiting, fever that he is aware of. Son states that he has difficulty caring for his dad as he is not living in the same household. He states that his mother is also unable to care for his father as she is aging as well. They have no other complaints today. Objective Data Objective Data Vital Signs: Vital Signs Temp Pulse Resp BP 97.6 F L 72 16 160/90 H 08/20/21 00:08 08/20/21 00:08 08/20/21 00:08 08/20/21 00:08 Weight: 190 lb Body Mass Index (BMI) 25.7 Debridement Note Debridement Note Post-Debridement Measurements and Additional Note: Post-Debridement Measurements/Treatment WC - Nurse 3 - General Ulcer D/C NN Start: 08/20/21 10:41 Freq: Status: Active Protocol: Activity Type Activity Date Activity User E-Sign Co-Sign Detail Recorded Client Recorded Date Recorded By Document 08/20/21 10:42 ZENIA [id number] 08/20/21 10:43 ZENIA 08/20/21 10:42 Wound Care Nurse 3 #2 Left Buttocks -Ulcer Cleansing Rinsed/ Irrigated with Saline -Primary Dressing Applied Aquacel AG 4x4, Mepilex Border -Aquacel AG 4x4 1 -Mepilex Border 1 Pain Scale: 0-10 Numeric Is Patient Pain Free? Yes WC - Visit Discharge Discharge Condition Stable Ambulatory Status Ambulatory Transportation Private Auto Accompanied by son
--- NOTE | 2021-08-20 11:04 | PCM.WC.HP ---
History of Present Illness Date of Service: 08/20/21 Chief Complaint: L buttock History of Wound: Clint is an 85-year-old male who [facility] of his left buttock ulcer. He was seen by Dr. Da Silva (podiatry) [facility] in July 2021 for evaluation and treatment of a right leg abrasion, which has since healed. He is now transferring to my care. He has a PMH significant for previous tobacco use (quit many years ago), alcohol use, paroxysmal atrial fibrillation (currently off of Eliquis), hyperlipidemia, dementia, and T2DM (non-insulin dependent). Per his son, he still consumes a few beers when they go to the bar on Fridays. His son reports that his appetite is adequate, and he will eat whatever is put in front of him. However he does state that the patient does not hydrate well, and only drinks a couple glasses of water per day. He presents with his son today. He was admitted to the hospital ([facility]) on 06/29/2021 for what was suspected to be a GI bleed, however it was found that he was having bleeding from his left buttock wound. This was the first instance in which the son was aware that the patient had a left buttock wound. His Eliquis was discontinued during his hospitalization, with instructions to follow-up with his PCP regarding further treatment with Eliquis. The patient has not been performing any wound care to his left buttock ulcer since hospital discharge. The patient is homebound. He is able to ambulate independently. The patient lives at home with his . He has dementia, and becomes very irritable and refuses assistance from his family members and providing his ADLs. He does not allow his family to help with bathing, grooming, or even changing his clothes. He does not shower or bathe. He has occasionally received sponge baths from a home nurse who is coming to his home once a week. He does not have any incontinence of urine or stool, and provides all of his toileting care independently. He spends most of his day seated in a recliner, though he does at times go to his bedroom to sleep in bed. He is seated for the vast majority of the day. He does not use any offloading cushions or devices. Patient's son states that his dad will not apply the lotion and does not like to shower likely due to his progressing dementia. Patient denies any nausea, vomiting, fever, chills or other constitutional symptoms. Son states that his dad does not demonstrate any nausea, vomiting, fever that he is aware of. Son states that he has difficulty caring for his dad as he is not living in the same household. He states that his mother is also unable to care for his father as she is aging as well. They have no other complaints today. The patient denies fever, chills, general malaise, or poor appetite. The patient has not had increased redness, swelling, or purulent/malodorous drainage from affected area. Labs from 06/29/2021 reviewed, as follows: CBCD: RBC 3.56, hemoglobin 11.2, hematocrit 33.1 BMP: Sodium 135, glucose 164, calcium 7.6 Magnesium: Normal Staff aureus and MRSA PCR's from 06/28/2021 were negative. 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, without long-term current use of insulin Home Medications metformin 500 mg PO BIDCM 06/28/21 [History Last Taken 06/28/21] pravastatin 40 mg PO QHS 06/28/21 [History Last Taken 06/27/21] cefdinir 300 mg PO BID #10 cap 06/30/21 [Rx Last Taken Unknown] Allergy/AdvReac Type Severity Reaction Status Date / Time No Known Allergies Allergy Verified 06/28/21 20:11 Surgical History H/O tooth extraction Social History Smoking Status: Never smoker ROS Constitutional Constitutional: Denies chills, fatigue, fever(s) or weakness Eyes Eyes: Denies blurry vision, change in vision or double vision ENT HEENT: Denies headache(s), nasal congestion, nasal discharge or sore throat Cardiovascular Cardiovascular: Denies chest pain, dyspnea or palpitations Respiratory/Chest Respiratory/Chest: Denies cough, shortness of breath at rest or wheezing Gastrointestinal Gastrointestinal: Denies abdominal pain, constipation, diarrhea, nausea or vomiting Musculoskeletal Musculoskeletal: Denies joint pain, joint stiffness, joint swelling or tingling Integumentary Integumentary: Reports dry skin; Denies jaundice, lesions, pruritus or rash Neurologic Neurologic: Reports behavior changes, confusion, memory loss and other Details: Son states his father has dementia ; Denies numbness, seizures or tingling Psychiatric Psychiatric: Denies anxiety or depression Endocrine Endocrinology: Denies cold intolerance or heat intolerance Hematologic/Lymphatic Hematologic/Lymphatic: Reports easy bleeding; Denies easy bruising Vital Signs Vital Signs Vital Signs: 08/20/21 00:08 Temperature 97.6 F L Pulse Rate 72 Respiratory Rate 16 Blood Pressure 160/90 H Blood Pressure Mean 113 Blood Pressure Location Left Arm Weight Weight: 190 lb Body Mass Index (BMI) 25.7 Physical Exam Const alert and no apparent distress General Appearance: cooperative and comfortable HEENT normocephalic Resp normal respiratory effort, normal air movement, no use of accessory muscles and clear to auscultation bilaterally Cardio regular rate and regular rhythm GI soft to palpation, non-tender and non-distended Auscultation: normoactive bowel sounds Skin no rashes or lesions noted General Skin Exam: elasticity normal, atrophy, dry skin and skin tear(s) Wounds: wounds noted Wound Narrative: Left buttock ulcer with subcutaneous layer exposed. Small amount of slough and devitalized tissue present. Surrounding area of excoriation and tiny skin tears, expected to be from scratching. No tunneling, undermining, or probing to bone. No periulcer erythema, warmth, or tenderness. No purulent or malodorous drainage noted. Skin is diffusely dry and flaky. Neuro moves all extremities Motor Exam: strength 5/5 throughout Debridement Note Debridement Note Wound debrided: Left buttock ulcer Laterality: Left Wound Grade/Stage: Category 3 Type of Debridement: Excisional debridement Anesthesia Used: 4% Lidocaine Solution Depth: in the subcutaneous layer Percentage of wound debrided: 100 Instrument Used: 3mm curette Tissue Removed: Slough and devitalized tissue Severity: Fat Layer Exposed Amount of bleeding with debridement: Moderate Bleeding Controlled with: Pressure Patient tolerated procedure: Patient tolerated procedure well Post-Debridement Measurements and Additional Note: Post-Debridement Measurements/Treatment WC - Nurse 3 - General Ulcer D/C NN Start: 08/20/21 10:41 Freq: Status: Active Protocol: Activity Type Activity Date Activity User E-Sign Co-Sign Detail Recorded Client Recorded Date Recorded By Document 08/20/21 10:42 ZENIA [id number] 08/20/21 10:43 ZENIA 08/20/21 10:42 Wound Care Nurse 3 #2 Left Buttocks -Ulcer Cleansing Rinsed/ Irrigated with Saline -Primary Dressing Applied Aquacel AG 4x4, Mepilex Border -Aquacel AG 4x4 1 -Mepilex Border 1 Pain Scale: 0-10 Numeric Is Patient Pain Free? 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 Aquacel Ag applied. At home wound-care instructions: Aquacel Ag dressings to be changed 3 times per week, or more frequently as needed due to contamination. Wash wounds daily with antibacterial soap and water, rinse and dry thoroughly before each dressing change. Apply A&D ointment to the periulcer area, and to bilateral buttocks. Cover ulcer with silicone border dressing. Home health care will be ordered to assist with dressing changes, and we will also try to get bathing/grooming services covered due to patient's inability to provide care for himself, and his refusal to allow family members to aid in his care. (He needs to be bathed at least once per week, and his nails need trimmed due to frequent scratching and self injury.) Off-loading: The patient/family was instructed to avoid pressure and friction on the affected areas. Reposition every hour at minimum. Avoid prolonged sitting. Offloading mechanisms discussed to avoid pressure on the left buttock. Diet: Patient/family encouraged to increase protein intake while taking caution to avoid high carbohydrate and/or sugar intake. Family was also advised to limit patient's alcohol intake, due to concern for poor nutrition. Labs/cultures/imaging: Cultures ordered and collected today. Labs reviewed as annotated above. Follow-up: Return to clinic in 1 week for re-evaluation. Return sooner or report to the emergency room should symptoms worsen, or new symptoms arise. Note: [employer] speech recognition umbrella tipper machine software was used to create portions of this document. Sound-alike and misspelled words, as well as other umbrella tipper machine errors may be contained in the documentation.
[2021-08-27 11:20] VITALS: BP 127/68; PULSE 72; TEMP 36.3; BMI 25.7
--- NOTE | 2021-08-27 13:26 | PN.PCM_ITS ---
History of Present Illness Date of Service: 08/27/21 Chief Complaint: L buttock History of Wound: Clint is an 85-year-old male who [facility] his left buttock ulcer. He was seen by Dr. Da Silva (podiatry) [facility] in July 2021 for evaluation and treatment of a right leg abrasion, which has since healed. He is now transferring to my care. He has a PMH significant for previous tobacco use (quit many years ago), alcohol use, paroxysmal atrial fibrillation (currently off of Eliquis), hyperlipidemia, dementia, and T2DM (non-insulin dependent). Per his son, he still consumes a few beers when they go to the bar on Fridays. His son reports that his appetite is adequate, and he will eat whatever is put in front of him. However he does state that the patient does not hydrate well, and only drinks a couple glasses of water per day. He presents with his son today. He was admitted to the hospital ([facility]) on 06/29/2021 for what was suspected to be a GI bleed, however it was found that he was having bleeding from his left buttock wound. This was the first instance in which the son was aware that the patient had a left buttock wound. His Eliquis was discontinued during his hospitalization, with instructions to follow-up with his PCP regarding further treatment with Eliquis. The patient has not been performing any wound care to his left buttock ulcer since hospital discharge. The patient is homebound. He is able to ambulate independently. The patient lives at home with his . He has dementia, and becomes very irritable and refuses assistance from his family members and providing his ADLs. He does not allow his family to help with bathing, grooming, or even changing his clothes. He does not shower or bathe. He has occasionally received sponge baths from a home nurse who is coming to his home once a week. He does not have any incontinence of urine or stool, and provides all of his toileting care independently. He spends most of his day seated in a recliner, though he does at times go to his bedroom to sleep in bed. He is seated for the vast majority of the day. He does not use any offloading cushions or devices. Patient's son states that his dad will not apply the lotion and does not like to shower likely due to his progressing dementia. Patient denies any nausea, vomiting, fever, chills or other constitutional symptoms. Son states that his dad does not demonstrate any nausea, vomiting, fever that he is aware of. Son states that he has difficulty caring for his dad as he is not living in the same household. He states that his mother is also unable to care for his father as she is aging as well. They have no other complaints today. The patient denies fever, chills, general malaise, or poor appetite. The patient has not had increased redness, swelling, or purulent/malodorous drainage from affected area. Labs from 06/29/2021 reviewed, as follows: CBCD: RBC 3.56, hemoglobin 11.2, hematocrit 33.1 BMP: Sodium 135, glucose 164, calcium 7.6 Magnesium: Normal Staff aureus and MRSA PCR's from 06/28/2021 were negative. Progress of Wound: Left buttock ulcer has improved in size and appearance. He continues to have areas of excoriation of the left buttock, as well as severely dry skin. Per son, the patient has not showered in the past week. Home health is coming out to change dressings twice a week. Patient's son has not picked up A&D ointment to apply to bilateral buttocks. Wound culture from 08/20/2021 was positive for very rare Staph epidermidis, likely contaminant. No antibiotics were initiated at that time. The patient denies fever, chills, general malaise, or poor appetite. The patient has not had increased redness, swelling, or purulent/malodorous drainage from affected area. Objective Data Objective Data Vital Signs: Vital Signs Temp Pulse Resp BP 97.4 F L 72 16 127/68 H 08/27/21 11:20 08/27/21 11:20 08/20/21 00:08 08/27/21 11:20 Weight: 190 lb Body Mass Index (BMI) 25.7 Lab / Micro Data Micro: Microbiology 08/20/21 10:25 Wound Abcess - Buttock Gram Stain - Final 08/20/21 10:25 Wound Abcess - Buttock Wound Culture - Final Staphylococcus epidermidis 08/20/21 10:25 Wound Abcess - Buttock Anaerobic Culture - Final No anaerobic bacteria isolated. Charges/Coding Procedures Integumentary [id number]: [id number] Heidi subq tissue 20 sq cm/< Physical Exam Const alert and no apparent distress General Appearance: cooperative and comfortable HEENT normocephalic Resp normal respiratory effort, normal air movement and no use of accessory muscles Skin no rashes or lesions noted General Skin Exam: atrophy, dry skin and skin tear(s) Wounds: wounds noted Wound Narrative: Left buttock ulcer with subcutaneous layer exposed. Small amount of slough and devitalized tissue present. Surrounding area of excoriation and tiny skin tears, expected to be from scratching. No tunneling, undermining, or probing to bone. No periulcer erythema, warmth, or tenderness. No purulent or malodorous drainage noted. Skin is diffusely dry and flaky. Neuro moves all extremities Motor Exam: strength 5/5 throughout Debridement Note Debridement Note Wound debrided: Left buttock ulcer Laterality: Left Type of Debridement: Excisional debridement Anesthesia Used: 4% Lidocaine Solution Depth: in the subcutaneous layer Percentage of wound debrided: 100 Instrument Used: 3mm curette Tissue Removed: Slough and devitalized tissue Severity: Fat Layer Exposed Amount of bleeding with debridement: Mild Bleeding Controlled with: Pressure Patient tolerated procedure: Patient tolerated procedure well Post-Debridement Measurements and Additional Note: Post-Debridement Measure ments/Treatment - Nurse 1 - General Ulcer Assessment Start: 08/20/21 10:41 Freq: Status: Active Protocol: [email or web address] Activity Type Activity Date Activity User E-Sign Co-Sign Detail Recorded Client Recorded Date Recorded By Document 08/27/21 11:20 ZENIA [id number] 08/27/21 11:22 ZENIA 08/27/21 11:20 - Today's Visit Information Type of service Follow-up Visit (Physician/LOOM [facility]TER [facility]IN[facility] ) Arrival Mode Ambulatory Patient Identification Verified (Name & Yes ) Height and Weight Body Mass Index (BMI) 25.7 BMI Classification Overweight Vital Signs Temperature (97.8 F-99.1 F) 97.4 F L Temperature Source Temporal Pulse Rate (60-100) 72 Pulse Location Monitor Blood Pressure (90/60-120/80) 127/68 H Blood Pressure Mean (mm Hg) 87 Source Monitor Position Semi-Fowlers Blood Pressure Location Right Arm History Since Last Visit- (Skip if this is Patient's initial visit) Have you changed medications since your No last visit? Any new allergies or adverse reactions No Had a fall/change in ADL's that may No increase risk of falls Signs or symptoms of abuse and/or No neglect since last visit Have you been in the hospital since your No last visit? Has dressing in place as prescribed Yes Has compression in place as prescribed N/A Has offloadiing in place as prescribed N/A Experienced any changes in pain level or No management Left Footwear Regular Shoe Right Footwear Regular Shoe Pain Scale: 0-10 Numeric Is Patient Pain Free? Yes WC - Nurse 1 - General Ulcer Measurement Start: 08/20/21 10:41 Freq: Status: Active Protocol: Activity Type Activity Date Activity User E-Sign Co-Sign Detail Recorded Client Recorded Date Recorded By Document 08/27/21 11:20 KR [id number] 08/27/21 11:22 KR 08/27/21 11:20 Wound Center Nurse 1 #2 Left Buttocks -Current Size (cm) - Length 1.3 -Current Size (cm) - Width 1.2 -Current Size (cm) - Depth 0.1 -Total Square Cm 1.56 -Exudate Amt Small -Exudate Type Serosanguineous -Wound Margin Distinct, Outline Attached -Granulation Amt Medium (34-66%) -Granulation Quality [place] -Necrosis Amt None Present (0 %) -Texture (Sophia-wound Skin Appearance) Assessed, Scarring -Moisture (Sophia-wound Skin Appearance) No Abnormality, Assessed -Color (Sophia-wound Skin Appearance) No Abnormality, Assessed -Temperature (Sophia-wound Skin No Abnormality Appearance) (Pt Warm) -Tenderness on Palpation (Sophia-wound No Skin Appearance) -Ulcer Cleansing Rinsed/ Irrigated with Saline -Foul Odor after Cleansing No -Anesthetic Used 5% Lidocaine Gel WC - Nurse 2 - General Ulcer CM Notes Start: 08/20/21 10:41 Freq: Status: Active Protocol: Activity Type Activity Date Activity User E-Sign Co-Sign Detail Recorded Client Recorded Date Recorded By Document 08/20/21 10:52 PL [id number] 08/20/21 10:53 PL Document 08/27/21 13:06 PL [id number] 08/27/21 13:07 PL 08/20/21 08/27/21 10:52 13:06 Wound Center Nurse 2 #2 Left Buttocks -Time 10:20 11:47 -Correct Patient Yes Yes -Correct Side, Site, Position Yes Yes -Correct Procedure Yes Yes -Procedure Performed Yes Yes -Type of Procedure Debridement Debridement -Clinical Debridement Subcutaneous Subcutaneous -Tissue Removed Subcutaneous Subcutaneous -Post Debridement (cm) - Length 1.9 1.5 -Post Debridement (cm) - Width 1.5 1.0 -Post Debridement (cm) - Depth 0.1 0.1 -Total Square (Post) (cm) 2.85 1.50 -Area of Debridement (cm) - Length 1.9 1.5 -Area of Debridement (cm) - Width 1.5 1.0 -Total Square (Area) (cm) 2.85 1.50 -Tunneling No No -Undermining/Tunneling No No -Circular Undermining No No -Wound/Ulcer Outcome Not Healed Not Healed -Ulcer Cleansing Rinsed/ Rinsed/ Irrigated with Irrigated with Saline Saline -Foul Odor after Cleansing No No -Bioengineered Tissue No No -Bleeding Controlled with Pressure Pressure -Treatment Response Procedure Procedure Tolerated Well Tolerated Well -Debridement - Subq, 1st 20sq cm Yes Yes Pain Scale: 0-10 Numeric Is Patient Pain Free? Yes Yes - Nurse 3 - General Ulcer D/C NN Start: 08/20/21 10:41 Freq: Status: Active Protocol: Activity Type Activity Date Activity User E-Sign Co-Sign Detail Recorded Client Recorded Date Recorded By Document 08/20/21 10:42 ZENIA [id number] 08/20/21 10:43 KR Document 08/27/21 12:03 ZENIA [id number] 08/27/21 12:03 KR 08/20/21 08/27/21 10:42 12:03 Wound Care Nurse 3 #2 Left Buttocks -Ulcer Cleansing Rinsed/ Rinsed/ Irrigated with Irrigated with Saline Saline -Primary Dressing Applied Aquacel AG 4x4, Aquacel AG 4x4, Mepilex Border Mepilex Border -Aquacel AG 4x4 1 1 -Mepilex Border 1 1 Pain Scale: 0-10 Numeric Is Patient Pain Free? 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 Aquacel Ag applied. At home wound-care instructions: Aquacel Ag dressings to be changed 3 times per week, or more frequently as needed due to contamination. Wash wounds daily with antibacterial soap and water, rinse and dry thoroughly before each dressing change. Apply A&D ointment to the periulcer area, and to bilateral buttocks. Cover ulcer with silicone border dressing. Off-loading: The patient/family was instructed to avoid pressure and friction on the affected areas. Reposition every hour at minimum. Avoid prolonged sitting. Offloading mechanisms discussed to avoid pressure on the left buttock. Diet: Patient/family encouraged to increase protein intake while taking caution to avoid high carbohydrate and/or sugar intake. Family was also advised to limit patient's alcohol intake, due to concern for poor nutrition. Labs/cultures/imaging: Cultures positive for very rare Staph epidermidis, likely skin contaminant. No antibiotics initiated at this time. We will continue to monitor. Follow-up: Return to clinic in 2 weeks for re-evaluation. Return sooner or report to the emergency room should symptoms worsen, or new symptoms arise. Note: [employer] speech recognition seamark advanced operator maintainer software was used to create portions of this document. Sound-alike and misspelled words, as well as other seamark advanced operator maintainer errors may be contained in the documentation.
[2021-09-10 10:46] VITALS: BP 158/79; PULSE 85; TEMP 36.3; BMI 25.7
--- NOTE | 2021-09-10 13:42 | PN.PCM_ITS ---
History of Present Illness Date of Service: 09/10/21 Chief Complaint: L buttock History of Wound: Clint is an 85-year-old male who [facility] his left buttock ulcer. He was seen by Dr. Da Silva (podiatry) [facility] in July 2021 for evaluation and treatment of a right leg abrasion, which has since healed. He is now transferring to my care. He has a PMH significant for previous tobacco use (quit many years ago), alcohol use, paroxysmal atrial fibrillation (currently off of Eliquis), hyperlipidemia, dementia, and T2DM (non-insulin dependent). Per his son, he still consumes a few beers when they go to the bar on Fridays. His son reports that his appetite is adequate, and he will eat whatever is put in front of him. However he does state that the patient does not hydrate well, and only drinks a couple glasses of water per day. He presents with his son today. He was admitted to the hospital ([facility]) on 06/29/2021 for what was suspected to be a GI bleed, however it was found that he was having bleeding from his left buttock wound. This was the first instance in which the son was aware that the patient had a left buttock wound. His Eliquis was discontinued during his hospitalization, with instructions to follow-up with his PCP regarding further treatment with Eliquis. The patient has not been performing any wound care to his left buttock ulcer since hospital discharge. The patient is homebound. He is able to ambulate independently. The patient lives at home with his . He has dementia, and becomes very irritable and refuses assistance from his family members and providing his ADLs. He does not allow his family to help with bathing, grooming, or even changing his clothes. He does not shower or bathe. He has occasionally received sponge baths from a home nurse who is coming to his home once a week. He does not have any incontinence of urine or stool, and provides all of his toileting care independently. He spends most of his day seated in a recliner, though he does at times go to his bedroom to sleep in bed. He is seated for the vast majority of the day. He does not use any offloading cushions or devices. Patient's son states that his dad will not apply the lotion and does not like to shower likely due to his progressing dementia. Patient denies any nausea, vomiting, fever, chills or other constitutional symptoms. Son states that his dad does not demonstrate any nausea, vomiting, fever that he is aware of. Son states that he has difficulty caring for his dad as he is not living in the same household. He states that his mother is also unable to care for his father as she is aging as well. They have no other complaints today. The patient denies fever, chills, general malaise, or poor appetite. The patient has not had increased redness, swelling, or purulent/malodorous drainage from affected area. Labs from 06/29/2021 reviewed, as follows: CBCD: RBC 3.56, hemoglobin 11.2, hematocrit 33.1 BMP: Sodium 135, glucose 164, calcium 7.6 Magnesium: Normal Staff aureus and MRSA PCR's from 06/28/2021 were negative. Progress of Wound: The patient's left buttock ulcer is healed today. He has small areas of skin tears and excoriation of the left buttock, as well as severely dry skin. Home health is coming out to change dressings twice a week. Patient son is not sure if A&D ointment is being used routinely. Wound culture from 08/20/2021 was positive for very rare Staph epidermidis, likely contaminant. No antibiotics were initiated at that time. The patient denies fever, chills, general malaise, or poor appetite. The patient has not had increased redness, swelling, or purulent/malodorous drainage from affected area. Objective Data Objective Data Vital Signs: Vital Signs Temp Pulse Resp BP 97.4 F L 85 16 158/79 H 09/10/21 10:46 09/10/21 10:46 08/20/21 00:08 09/10/21 10:46 Weight: 190 lb Body Mass Index (BMI) 25.7 Lab / Micro Data Micro: Microbiology 08/20/21 10:25 Wound Abcess - Buttock Gram Stain - Final 08/20/21 10:25 Wound Abcess - Buttock Wound Culture - Final Staphylococcus epidermidis 08/20/21 10:25 Wound Abcess - Buttock Anaerobic Culture - Final No anaerobic bacteria isolated. Charges/Coding Visit Charges Office Visits / Consults: [id number] OV L3 Est Physical Exam Const alert and no apparent distress General Appearance: cooperative and comfortable HEENT normocephalic Resp normal respiratory effort, normal air movement and no use of accessory muscles Skin no rashes or lesions noted General Skin Exam: atrophy, dry skin and skin tear(s) Wounds: wounds noted Wound Narrative: Left buttock ulcer is healed. Multiple areas of excoriation and tiny skin tears on the bilateral buttocks, expected to be from scratching. No tunneling, undermining, or probing to bone. No periulcer erythema, warmth, or tenderness. No purulent or malodorous drainage noted. Skin is diffusely dry and flaky. Neuro moves all extremities Motor Exam: strength 5/5 throughout Debridement Note Debridement Note No debridement was completed: No debridement was completed today Post-Debridement Measurements and Additional Note: Post-Debridement Measurements/Treatment - Nurse 1 - General Ulcer Assessment Start: 08/20/21 10:41 Freq: Status: Active Protocol: [email or web address] Activity Type Activity Date Activity User E-Sign Co-Sign Detail Recorded Client Recorded Date Recorded By Document 08/27/21 11:20 [id number] 08/27/21 11:22 KR Document 09/10/21 10:46 [id number] 09/10/21 10:49 KR 08/27/21 09/10/21 11:20 10:46 - Today's Visit Information Type of service Follow-up Visit Follow-up Visit (Physician/[facility] [facility] (Physician/[facility] [employer] [facility] ) ) Arrival Mode Ambulatory Ambulatory Accompanied by son Patient Identification Verified (Name & Yes ) Height and Weight Body Mass Index (BMI) 25.7 25.7 BMI Classification Overweight Overweight Vital Signs Temperature (97.8 F-99.1 F) 97.4 F L 97.4 F L Temperature Source Temporal Temporal Pulse Rate (60-100) 72 85 Pulse Location Monitor Monitor Blood Pressure (90/60-120/80) 127/68 H 158/79 H Blood Pressure Mean (mm Hg) 87 105 Source Monitor Monitor Position Semi-Fowlers Sitting Blood Pressure Location Right Arm Left Arm History Since Last Visit- (Skip if this is Patient's initial visit) Have you changed medications since your No No last visit? Any new allergies or adverse reactions No No Had a fall/change in ADL's that may No No increase risk of falls Signs or symptoms of abuse and/or No No neglect since last visit Have you been in the hospital since your No No last visit? Has dressing in place as prescribed Yes Yes Has compression in place as prescribed N/A N/A Has offloadiing in place as prescribed N/A N/A Experienced any changes in pain level or No No management Left Footwear Regular Shoe Regular Shoe Right Footwear Regular Shoe Regular Shoe Pain Scale: 0-10 Numeric Is Patient Pain Free? Yes Yes - Nurse 1 - General Ulcer Measurement Start: 08/20/21 10:41 Freq: Status: Active Protocol: Activity Type Activity Date Activity User E-Sign Co-Sign Detail Recorded Client Recorded Date Recorded By Document 08/27/21 11:20 ZENIA [id number] 08/27/21 11:22 KR Document 09/10/21 10:46 ZENIA [id number] 09/10/21 10:49 KR 08/27/21 09/10/21 11:20 10:46 Wound Center Nurse 1 #2 Left Buttocks -Current Size (cm) - Length 1.3 0.1 -Current Size (cm) - Width 1.2 0.1 -Current Size (cm) - Depth 0.1 0.1 -Total Square Cm 1.56 0.01 -Exudate Amt Small None Present -Exudate Type Serosanguineous -Wound Margin Distinct, Distinct, Outline Outline Attached Attached -Granulation Amt Medium (34-66%) None Present (0 %) -Granulation Quality [place] -Necrosis Amt None Present (0 None Present (0 %) %) -Texture (Sophia-wound Skin Appearance) Assessed, Assessed, Scarring Scarring -Moisture (Sophia-wound Skin Appearance) No Abnormality, Assessed,Dry/ Assessed Scaly -Color (Sophia-wound Skin Appearance) No Abnormality, Assessed -Temperature (Sophia-wound Skin No Abnormality No Abnormality Appearance) (Pt Warm) (Pt Warm) -Tenderness on Palpation (Sophia-wound No No Skin Appearance) -Ulcer Cleansing Rinsed/ Rinsed/ Irrigated with Irrigated with Saline Saline -Foul Odor after Cleansing No No -Anesthetic Used 5% Lidocaine 5% Lidocaine Gel Gel WC - Nurse 2 - General Ulcer CM Notes Start: 08/20/21 10:41 Freq: Status: Active Protocol: Activity Type Activity Date Activity User E-Sign Co-Sign Detail Recorded Client Recorded Date Recorded By Document 08/20/21 10:52 PL [id number] 08/20/21 10:53 PL Document 08/27/21 13:06 PL [id number] 08/27/21 13:07 PL Document 09/10/21 12:34 PL [id number] 09/10/21 12:35 PL 08/20/21 08/27/21 09/10/21 10:52 13:06 12:34 Wound Center Nurse 2 #2 Left Buttocks -Time 10:20 11:47 11:16 -Correct Patient Yes Yes -Correct Side, Site, Position Yes Yes -Correct Procedure Yes Yes -Procedure Performed Yes Yes No -Type of Procedure Debridement Debridement -Clinical Debridement Subcutaneous Subcutaneous -Tissue Removed Subcutaneous Subcutaneous -Post Debridement (cm) - Length 1.9 1.5 7.0 -Post Debridement (cm) - Width 1.5 1.0 7.0 -Post Debridement (cm) - Depth 0.1 0.1 0.1 -Total Square (Post) (cm) 2.85 1.50 49.00 -Area of Debridement (cm) - Length 1.9 1.5 -Area of Debridement (cm) - Width 1.5 1.0 -Total Square (Area) (cm) 2.85 1.50 -Tunneling No No No -Undermining/Tunneling No No No -Circular Undermining No No No -Wound/Ulcer Outcome Not Healed Not Healed Not Healed -Ulcer Cleansing Rinsed/ Rinsed/ Rinsed/ Irrigated with Irrigated with Irrigated with Saline Saline Saline -Foul Odor after Cleansing No No No -Bioengineered Tissue No No No -Bleeding Controlled with Pressure Pressure -Treatment Response Procedure Procedure Tolerated Well Tolerated Well -Debridement - Subq, 1st 20sq cm Yes Yes Pain Scale: 0-10 Numeric Is Patient Pain Free? Yes Yes Yes WC - Nurse 3 - General Ulcer D/C NN Start: 08/20/21 10:41 Freq: Status: Active Protocol: Activity Type Activity Date Activity User E-Sign Co-Sign Detail Recorded Client Recorded Date Recorded By Document 08/20/21 10:42 KR [id number] 08/20/21 10:43 KR Document 08/27/21 12:03 KR [id number] 08/27/21 12:03 KR Document 09/10/21 11:30 KR [id number] 09/10/21 11:31 KR 08/20/21 08/27/21 09/10/21 10:42 12:03 11:30 Wound Care Nurse 3 #2 Left Buttocks -Ulcer Cleansing Rinsed/ Rinsed/ Rinsed/ Irrigated with Irrigated with Irrigated with Saline Saline Saline -Primary Dressing Applied Aquacel AG 4x4, Aquacel AG 4x4, C Hydrogel ($) Mepilex Border Mepilex Border -Aquacel AG 4x4 1 1 -Mepilex Border 1 1 Pain Scale: 0-10 Numeric Is Patient Pain Free? Yes Yes Yes WC - Visit Discharge Discharge Condition Stable Stable Stable Ambulatory Status Ambulatory Ambulatory Ambulatory Transportation Private Auto Private Auto Private Auto Accompanied by son son son Assessment/Plan Assessment/Plan (1) Tear of skin of right buttock: CODE(S): S31.811A - Laceration without foreign body of right buttock, initial encounter QUALIFIERS: Encounter type: initial encounter Qualified Code(s): S31.811A - Laceration without foreign body of right buttock, initial encounter (2) Tear of skin of left buttock: CODE(S): S31.821A - Laceration without foreign body of left buttock, initial encounter QUALIFIERS: Encounter type: initial encounter Qualified Code(s): S31.821A - Laceration without foreign body of left buttock, initial encounter (3) Pressure ulcer of left buttock, stage 3: CODE(S): L89.323 - Pressure ulcer of left buttock, stage 3 (4) 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, without long-term current use of insulin: CODE(S): E11.628 - Type 2 diabetes mellitus with other skin complications QUALIFIERS: Diabetes mellitus complication detail: with other skin complication Qualified Code(s): E11.628 - Type 2 diabetes mellitus with other skin complications (5) Dementia: CODE(S): F03.90 - Unspecified dementia without behavioral disturbance QUALIFIERS: Dementia type: unspecified type Dementia behavioral disturbance: with behavioral disturbance Qualified Code(s): F03.91 - Unspecified dementia with behavioral disturbance (6) Xerosis cutis: CODE(S): L85.3 - Xerosis cutis (7) Alcohol use: CODE(S): Z72.89 - Other problems related to lifestyle PLAN: No debridement performed today in clinic. Left buttock ulcer is healed today. The patient has numerous skin tears and excoriation of the bilateral buttocks, as well as diffusely dry skin. At home wound-care instructions: Apply A&D ointment to the bilateral buttocks daily. During nurse visits, bilateral buttocks should be cleansed with antibacterial soap and water, and rinsed and dried thoroughly. A&D ointment should be applied to the bilateral buttocks with each nurse visit, and the area should be left open to air. Off-loading: The patient/family was instructed to avoid pressure and friction on the affected areas. Reposition every hour at minimum. Avoid prolonged sitting. Offloading mechanisms discussed to avoid pressure on the left buttock. Diet: Patient/family encouraged to increase protein intake while taking caution to avoid high carbohydrate and/or sugar intake. Family was also advised to limit patient's alcohol intake, due to concern for poor nutrition. Labs/cultures/imaging: Cultures was positive for very rare Staph epidermidis, likely skin contaminant. No antibiotics initiated at this time. We will continue to monitor. Follow-up: Return to clinic in 3 weeks for re-evaluation. Return sooner or report to the emergency room should symptoms worsen, or new symptoms arise. Note: [employer] speech recognition primer waterproofing machine operator software was used to create portions of this document. Sound-alike and misspelled words, as well as other primer waterproofing machine operator errors may be contained in the documentation.
== END 2021-09-18 23:59 | disposition home or self-care (01) ==
LOC: WC 10:45
PROVIDERS: PCP Family Medicine; Visit Provider Nurse Practitioner Family
DX: L89.323 Pressure ulcer of left buttock, stage 3 (principal); F03.90 Unspecified dementia, unspecified severity, without behavioral disturbance, psychotic disturbance, mood disturbance, and anxiety; E11.628 Type 2 diabetes mellitus with other skin complications; I48.0 Paroxysmal atrial fibrillation; L85.3 Xerosis cutis; S31.811A Laceration without foreign body of right buttock, initial encounter; S31.821A Laceration without foreign body of left buttock, initial encounter; E78.5 Hyperlipidemia, unspecified; Z79.84 Long term (current) use of oral hypoglycemic drugs; Z87.891 Personal history of nicotine dependence
CPT/HCPCS: 11042; 87070; 87075; 87186; 87205; 99213; G0463

== ENCOUNTER 2021-10-08 10:30 | Outpatient (RCR) | payer MEDICARE, SELFPAY ==
[2021-09-19 00:13] VITALS: BP 158/79; PULSE 85; RESP 16; TEMP 36.3; BMI 25.7
[2021-10-01 11:23] VITALS: BP 163/74; PULSE 69; TEMP 36.1; BMI 25.7
--- NOTE | 2021-10-01 13:04 | PN.PCM_ITS ---
History of Present Illness Date of Service: 10/01/21 Chief Complaint: L buttock History of Wound: Clint is an 85-year-old male who [facility] his left buttock ulcer. He was seen by Dr. Da Silva (podiatry) [facility] in July 2021 for evaluation and treatment of a right leg abrasion, which has since healed. He is now transferring to my care. He has a PMH significant for previous tobacco use (quit many years ago), alcohol use, paroxysmal atrial fibrillation (currently off of Eliquis), hyperlipidemia, dementia, and T2DM (non-insulin dependent). Per his son, he still consumes a few beers when they go to the bar on Fridays. His son reports that his appetite is adequate, and he will eat whatever is put in front of him. However he does state that the patient does not hydrate well, and only drinks a couple glasses of water per day. He presents with his son today. He was admitted to the hospital ([facility]) on 06/29/2021 for what was suspected to be a GI bleed, however it was found that he was having bleeding from his left buttock wound. This was the first instance in which the son was aware that the patient had a left buttock wound. His Eliquis was discontinued during his hospitalization, with instructions to follow-up with his PCP regarding further treatment with Eliquis. The patient has not been performing any wound care to his left buttock ulcer since hospital discharge. The patient is homebound. He is able to ambulate independently. The patient lives at home with his . He has dementia, and becomes very irritable and refuses assistance from his family members and providing his ADLs. He does not allow his family to help with bathing, grooming, or even changing his clothes. He does not shower or bathe. He has occasionally received sponge baths from a home nurse who is coming to his home once a week. He does not have any incontinence of urine or stool, and provides all of his toileting care independently. He spends most of his day seated in a recliner, though he does at times go to his bedroom to sleep in bed. He is seated for the vast majority of the day. He does not use any offloading cushions or devices. Patient's son states that his dad will not apply the lotion and does not like to shower likely due to his progressing dementia. Patient denies any nausea, vomiting, fever, chills or other constitutional symptoms. Son states that his dad does not demonstrate any nausea, vomiting, fever that he is aware of. Son states that he has difficulty caring for his dad as he is not living in the same household. He states that his mother is also unable to care for his father as she is aging as well. They have no other complaints today. The patient denies fever, chills, general malaise, or poor appetite. The patient has not had increased redness, swelling, or purulent/malodorous drainage from affected area. Labs from 06/29/2021 reviewed, as follows: CBCD: RBC 3.56, hemoglobin 11.2, hematocrit 33.1 BMP: Sodium 135, glucose 164, calcium 7.6 Magnesium: Normal Staff aureus and MRSA PCR's from 06/28/2021 were negative. Progress of Wound: The patient's buttock wounds have worsened in the past 3 weeks. He has significant shearing and excoriation. Per the patient's son, patient has not been compliant with the use of A&D for skin protectant. The patient is still not showering. Per the son, he continues to refuse to allow family to help with dressing changes or application of ointment, thus this does not get done. There have been issues with patient's insurance strictly limiting the amount of home health care he receives. The patient has not had any recent fevers, chills, change in appetite, or general malaise. Objective Data Objective Data Vital Signs: Vital Signs Temp Pulse Resp BP 96.9 F L 69 16 163/74 H 10/01/21 11:23 10/01/21 11:23 09/19/21 00:13 10/01/21 11:23 Weight: 190 lb Body Mass Index (BMI) 25.7 Charges/Coding Procedures Integumentary 111xxx-113xx: [id number] Heidi subq tissue 20 sq cm/< Physical Exam Const alert and no apparent distress General Appearance: cooperative and comfortable HEENT normocephalic Resp normal respiratory effort, normal air movement and no use of accessory muscles Skin no rashes or lesions noted General Skin Exam: atrophy, dry skin and skin tear(s) Wounds: wounds noted Wound Narrative: The original left buttock ulcer is healed. The patient has multiple areas of excoriation and small ulcerations and skin tears on the bilateral buttocks, some of which are clearly from scratching. No tunneling, undermining, or probing to bone. Mild periulcer erythema. No warmth or tenderness. No purulent or malodorous drainage noted. Skin is diffusely dry and flaky. Neuro moves all extremities Motor Exam: strength 5/5 throughout Debridement Note Debridement Note Wound debrided: Left buttock cluster Laterality: Left Type of Debridement: Excisional debridement Anesthesia Used: 4% Lidocaine Solution Depth: in the subcutaneous layer Percentage of wound debrided: 100 Instrument Used: 3mm curette Tissue Removed: Slough and devitalized tissue Severity: Fat Layer Exposed Amount of bleeding with debridement: Mild Bleeding Controlled with: Pressure Patient tolerated procedure: Patient tolerated procedure well Post-Debridement Measurements and Additional Note: Post-Debridement Measurements/Treatment DAVID - Nurse 1 - General Ulcer Assessment Start: 10/01/21 10:54 Freq: Status: Active Protocol: ANAID Activity Type Activity Date Activity User E-Sign Co-Sign Detail Recorded Client Recorded Date Recorded By Document 10/01/21 11:23 DUNCAN [id number] 10/01/21 11:28 DUNCAN 10/01/21 11:23 - Today's Visit Information Type of service Follow-up Visit (Physician/MATERIALS SPECIALIST ) Arrival Mode Ambulatory Patient Identification Verified (Name & Yes ) Patient Requires Transmission-Based No Precautions Height and Weight Body Mass Index (BMI) 25.7 BMI Classification Overweight Vital Signs Temperature (97.8 F-99.1 F) 96.9 F L Temperature Source Temporal Pulse Rate (60-100) 69 Pulse Location Monitor Blood Pressure (90/60-120/80) 163/74 H Blood Pressure Mean (mm Hg) 103 Source Monitor History Since Last Visit- (Skip if this is Patient's initial visit) Have you changed medications since your No last visit? Any new allergies or adverse reactions No Had a fall/change in ADL's that may No increase risk of falls Signs or symptoms of abuse and/or No neglect since last visit Have you been in the hospital since your No last visit? Has dressing in place as prescribed No Has compression in place as prescribed No Has offloadiing in place as prescribed No Experienced any changes in pain level or No management Left Footwear Regular Shoe Right Footwear Regular Shoe Pain Scale: 0-10 Numeric Is Patient Pain Free? Yes WC - Nurse 1 - General Ulcer Measurement Start: 10/01/21 10:54 Freq: Status: Active Protocol: Activity Type Activity Date Activity User E-Sign Co-Sign Detail Recorded Client Recorded Date Recorded By Document 10/01/21 11:23 HI [id number] 10/01/21 11:28 DUNCAN 10/01/21 11:23 Wound Center Nurse 1 3-right buttucks cluster -Combined with other wound No -Current Size (cm) - Length 4 -Current Size (cm) - Width 2 -Current Size (cm) - Depth 0.1 -Total Square Cm 8 -Photo Taken No -Tunneling No -Undermining/Tunneling No -Circular Undermining No -Classification - Thickness Partial Thickness -Change in Wound Grade/Stage No -Exudate Amt Medium -Exudate Type Serosanguineous -Wound Margin Distinct, Outline Attached -Granulation Amt None Present (0 %) -Granulation Quality N/A -Slough/Fibrin No -Necrosis Amt None Present (0 %) -Structure Exposed N/A -Texture (Sophia-wound Skin Appearance) No Abnormality, Assessed -Moisture (Sophia-wound Skin Appearance) Assessed,Dry/ Scaly -Color (Sophia-wound Skin Appearance) No Abnormality, Assessed -Temperature (Sophia-wound Skin No Abnormality Appearance) (Pt Warm) -Tenderness on Palpation (Sophia-wound No Skin Appearance) -Ulcer Cleansing Rinsed/ Irrigated with Saline -Foul Odor after Cleansing No -Anesthetic Used 4% Lidocaine Solution -Wound Comment(s) shearing #2 Left Buttocks -Combined with other wound No -Current Size (cm) - Length 1 -Current Size (cm) - Width 0.5 -Current Size (cm) - Depth 0.1 -Total Square Cm 0.5 -Photo Taken No -Epithelialization None Present -Tunneling No -Undermining/Tunneling No -Circular Undermining No -Change in Wound Grade/Stage No -Exudate Amt Medium -Exudate Type Serosanguineous -Wound Margin Distinct, Outline Attached -Granulation Amt None Present (0 %) -Granulation Quality N/A -Slough/Fibrin No -Necrosis Amt None Present (0 %) -Structure Exposed N/A -Texture (Sophia-wound Skin Appearance) No Abnormality, Assessed -Moisture (Sophia-wound Skin Appearance) Assessed,Dry/ Scaly -Color (Sophia-wound Skin Appearance) No Abnormality, Assessed -Temperature (Sophia-wound Skin No Abnormality Appearance) (Pt Warm) -Tenderness on Palpation (Sophia-wound No Skin Appearance) -Ulcer Cleansing Rinsed/ Irrigated with Saline -Foul Odor after Cleansing No -Anesthetic Used 4% Lidocaine Solution -Wound Comment(s) shearing WC - Nurse 2 - General Ulcer CM Notes Start: 10/01/21 10:54 Freq: Status: Active Protocol: Activity Type Activity Date Activity User E-Sign Co-Sign Detail Recorded Client Recorded Date Recorded By Document 10/01/21 10:54 ANG [id number] 10/01/21 10:59 ANG 10/01/21 10:54 Wound Center Nurse 2 3-right buttucks cluster -Time 10:58 -Correct Patient Yes -Correct Side, Site, Position Yes -Correct Procedure Yes -Procedure Performed Yes -Type of Procedure Debridement -Clinical Debridement Subcutaneous -Tissue Removed Subcutaneous -Post Debridement (cm) - Length 4.2 -Post Debridement (cm) - Width 2.3 -Post Debridement (cm) - Depth 0.1 -Total Square (Post) (cm) 9.66 -Area of Debridement (cm) - Length 4.2 -Area of Debridement (cm) - Width 2.3 -Total Square (Area) (cm) 9.66 -Tunneling No -Undermining/Tunneling No -Circular Undermining No -Wound/Ulcer Outcome Not Healed -Ulcer Cleansing Rinsed/ Irrigated with Saline -Foul Odor after Cleansing No -Bioengineered Tissue No -Bleeding Controlled with Pressure -Treatment Response Procedure Tolerated Well -Offloading No -Debridement - Subq, 1st 20sq cm Yes #2 Left Buttocks -Time 10:55 -Correct Patient Yes -Correct Side, Site, Position Yes -Correct Procedure Yes -Procedure Performed Yes -Type of Procedure Debridement -Clinical Debridement Subcutaneous -Tissue Removed Subcutaneous -Post Debridement (cm) - Length 2.5 -Post Debridement (cm) - Width 0.9 -Post Debridement (cm) - Depth 0.1 -Total Square (Post) (cm) 2.25 -Area of Debridement (cm) - Length 2.5 -Area of Debridement (cm) - Width 0.9 -Total Square (Area) (cm) 2.25 -Tunneling No -Undermining/Tunneling No -Circular Undermining No -Wound/Ulcer Outcome Not Healed -Ulcer Cleansing Rinsed/ Irrigated with Saline -Foul Odor after Cleansing No -Bioengineered Tissue No -Bleeding Controlled with Pressure -Treatment Response Procedure Tolerated Well -Offloading No -Debridement - Subq, 1st 20sq cm No Pain Scale: 0-10 Numeric Is Patient Pain Free? Yes - Nurse 3 - General Ulcer D/C NN Start: 10/01/21 10:54 Freq: Status: Active Protocol: Activity Type Activity Date Activity User E-Sign Co-Sign Detail Recorded Client Recorded Date Recorded By Document 10/01/21 11:23 DUNCAN [id number] 10/01/21 11:28 DUNCAN 10/01/21 11:23 Vital Signs Temperature (97.8 F-99.1 F) 96.9 F L Temperature Source Temporal Pulse Rate (60-100) 69 Pulse Location Monitor Blood Pressure (90/60-120/80) 163/74 H Blood Pressure Mean (mm Hg) 103 Source Monitor Pain Scale: 0-10 Numeric Is Patient Pain Free? Yes Wound Care Nurse 3 3-right buttucks cluster -Ulcer Cleansing Rinsed/ Irrigated with Saline -Foul Odor after Cleansing No -Negative Pressure Wound Therapy N/A -Other Dressing bacatracin & butterfly dressing #2 Left Buttocks -Ulcer Cleansing Rinsed/ Irrigated with Saline -Foul Odor after Cleansing No -Negative Pressure Wound Therapy N/A -Other Covering bacatracin & butterfly dressing WC - Visit Discharge Discharge Condition Stable Ambulatory Status Ambulatory Transportation Private Auto Accompanied by son Medication Reconcilliation completed & Yes provided to patient/care provider Clinical Summary of Care Provided Yes Additional Wound Wound debrided: Right buttock ulcers Laterality: Right Type of Debridement: Excisional debridement Anesthesia Used: 4% Lidocaine Solution Depth: in the subcutaneous layer Percentage of wound debrided: 100 Instrument Used: 3mm curette Tissue Removed: Slough and devitalized tissue Severity: Fat Layer Exposed Amount of bleeding with debridement: Mild Bleeding Controlled with: Pressure Patient tolerated procedure: Patient tolerated procedure well Assessment/Plan Assessment/Plan (1) Pressure ulcer of left buttock, stage 3: CODE(S): L89.323 - Pressure ulcer of left buttock, stage 3 (2) Decubitus ulcer of right buttock, stage 3: CODE(S): L89.313 - Pressure ulcer of right buttock, stage 3 (3) Excoriation of multiple sites of buttock: CODE(S): S30.810A - Abrasion of lower back and pelvis, initial encounter QUALIFIERS: Encounter type: subsequent encounter Qualified Code(s): S30.810D - Abrasion of lower back and pelvis, subsequent encounter (4) Tear of skin of right buttock: CODE(S): S31.811A - Laceration without foreign body of right buttock, initial encounter QUALIFIERS: Encounter type: initial encounter Qualified Code(s): S31.811A - Laceration without foreign body of right buttock, initial encounter (5) Tear of skin of left buttock: CODE(S): S31.821A - Laceration without foreign body of left buttock, initial encounter QUALIFIERS: Encounter type: initial encounter Qualified Code(s): S31.821A - Laceration without foreign body of left buttock, initial encounter (6) 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, without long-term current use of insulin: CODE(S): E11.628 - Type 2 diabetes mellitus with other skin complications QUALIFIERS: Diabetes mellitus complication detail: with other skin complication Qualified Code(s): E11.628 - Type 2 diabetes mellitus with other skin complications (7) Dementia: CODE(S): F03.90 - Unspecified dementia without behavioral disturbance QUALIFIERS: Dementia type: unspecified type Dementia behavioral disturbance: with behavioral disturbance Qualified Code(s): F03.91 - Unspecified dementia with behavioral disturbance (8) Xerosis cutis: CODE(S): L85.3 - Xerosis cutis (9) Alcohol use: CODE(S): Z72.89 - Other problems related to lifestyle PLAN: Debridement performed today as annotated above. Original left buttock ulcer is remains healed. However, the patient has numerous new ulcers, skin tears, and excoriation of the bilateral buttocks, as well as diffusely dry skin. A&D ointment applied to the bilateral buttocks and covered with a Mepilex dressing. At home wound-care instructions: During nurse visits (1-2 times weekly), bilateral buttocks should be cleansed with antibacterial soap and water, and rinsed and dried thoroughly. A&D ointment should be applied to the bilateral buttocks with each nurse visit, and the buttocks should be covered with a Mepilex dressing. Off-loading: The patient/family was instructed to avoid pressure and friction on the affected areas. Reposition every hour at minimum. Avoid prolonged sitting. Offloading mechanisms discussed to avoid pressure on the left buttock. (The patient's son reports that the patient does not leave his chair all day. He does not have gait difficulty, but refuses.) Diet: Patient/family encouraged to increase protein intake while taking caution to avoid high carbohydrate and/or sugar intake. Family was also advised to limit patient's alcohol intake, due to concern for poor nutrition. Labs/cultures/imaging: Cultures was positive for very rare Staph epidermidis, likely skin contaminant. No antibiotics initiated at this time. We will continue to monitor. Follow-up: Return to clinic in 1 week for re-evaluation. Return sooner or report to the emergency room should symptoms worsen, or new symptoms arise. Note: Recordant speech recognition construction electrician software was used to create portions of this document. Sound-alike and misspelled words, as well as other construction electrician errors may be contained in the documentation.
[2021-10-08 10:29] VITALS: BP 181/75; PULSE 84; RESP 16; TEMP 35.7; BMI 25.7
--- NOTE | 2021-10-08 11:42 | WC ---
zinc and border dressing
--- NOTE | 2021-10-08 12:32 | PCM.WC.PN ---
History of Present Illness Date of Service: 10/08/21 Chief Complaint: L buttock History of Wound: Clint is an 85-year-old male who [facility] of his left buttock ulcer. He was seen by Dr. Da Silva (podiatry) [facility] in July 2021 for evaluation and treatment of a right leg abrasion, which has since healed. He is now transferring to my care. He has a PMH significant for previous tobacco use (quit many years ago), alcohol use, paroxysmal atrial fibrillation (currently off of Eliquis), hyperlipidemia, dementia, and T2DM (non-insulin dependent). Per his son, he still consumes a few beers when they go to the bar on Fridays. His son reports that his appetite is adequate, and he will eat whatever is put in front of him. However he does state that the patient does not hydrate well, and only drinks a couple glasses of water per day. He presents with his son today. He was admitted to the hospital ([facility]) on 06/29/2021 for what was suspected to be a GI bleed, however it was found that he was having bleeding from his left buttock wound. This was the first instance in which the son was aware that the patient had a left buttock wound. His Eliquis was discontinued during his hospitalization, with instructions to follow-up with his PCP regarding further treatment with Eliquis. The patient has not been performing any wound care to his left buttock ulcer since hospital discharge. The patient is homebound. He is able to ambulate independently. The patient lives at home with his . He has dementia, and becomes very irritable and refuses assistance from his family members and providing his ADLs. He does not allow his family to help with bathing, grooming, or even changing his clothes. He does not shower or bathe. He has occasionally received sponge baths from a home nurse who is coming to his home once a week. He does not have any incontinence of urine or stool, and provides all of his toileting care independently. He spends most of his day seated in a recliner, though he does at times go to his bedroom to sleep in bed. He is seated for the vast majority of the day. He does not use any offloading cushions or devices. Patient's son states that his dad will not apply the lotion and does not like to shower likely due to his progressing dementia. Patient denies any nausea, vomiting, fever, chills or other constitutional symptoms. Son states that his dad does not demonstrate any nausea, vomiting, fever that he is aware of. Son states that he has difficulty caring for his dad as he is not living in the same household. He states that his mother is also unable to care for his father as she is aging as well. They have no other complaints today. The patient denies fever, chills, general malaise, or poor appetite. The patient has not had increased redness, swelling, or purulent/malodorous drainage from affected area. Labs from 06/29/2021 reviewed, as follows: CBCD: RBC 3.56, hemoglobin 11.2, hematocrit 33.1 BMP: Sodium 135, glucose 164, calcium 7.6 Magnesium: Normal Staff aureus and MRSA PCR's from 06/28/2021 were negative. Progress of Wound: The patient's buttock wounds are healed today. He responded well to the use of Mepilex and skin barrier cream. Objective Data Objective Data Vital Signs: Vital Signs Temp Pulse Resp BP 96.2 F L 84 16 181/75 H 10/08/21 10:29 10/08/21 10:29 10/08/21 10:29 10/08/21 10:29 Weight: 190 lb Body Mass Index (BMI) 25.7 Charges/Coding Visit Charges Office Visits / Consults: 15428 OV L3 Est Physical Exam Const alert and no apparent distress General Appearance: cooperative and comfortable HEENT normocephalic Resp normal respiratory effort, normal air movement and no use of accessory muscles Skin no rashes or lesions noted General Skin Exam: atrophy, dry skin and skin tear(s) Wounds: wounds noted Wound Narrative: No wounds of the bilateral buttocks are noted today. Skin is diffusely dry and flaky. Neuro moves all extremities Motor Exam: strength 5/5 throughout Debridement Note Debridement Note No debridement was completed: No debridement was completed today Post-Debridement Measurements and Additional Note: Post-Debridement Measurements/Treatment DAVID - Nurse 1 - General Ulcer Assessment Start: 10/01/21 10:54 Freq: Status: Active Protocol: ANAID Activity Type Activity Date Activity User E-Sign Co-Sign Detail Recorded Client Recorded Date Recorded By Document 10/01/21 11:23 AK [id number] 10/01/21 11:28 AK Document 10/08/21 10:29 ANG [id number] 10/08/21 10:34 JF 10/01/21 10/08/21 11:23 10:29 - Today's Visit Information Type of service Follow-up Visit Follow-up Visit (Physician/POLICY ANALYST (Physician/POLICY ANALYST ) ) Arrival Mode Ambulatory Ambulatory Accompanied by stepson Patient Identification Verified (Name & Yes Yes ) Patient Requires Transmission-Based No No Precautions Height and Weight Body Mass Index (BMI) 25.7 25.7 BMI Classification Overweight Overweight Vital Signs Temperature (97.8 F-99.1 F) 96.9 F L 96.2 F L Temperature Source Temporal Temporal Pulse Rate (60-100) 69 84 Pulse Location Monitor Monitor Respiratory Rate (12-18) 16 Respiratory rate source Observation Blood Pressure (90/60-120/80) 163/74 H 181/75 H Blood Pressure Mean (mm Hg) 103 110 Source Monitor Monitor Position Semi-Fowlers Blood Pressure Location Left Arm History Since Last Visit- (Skip if this is Patient's initial visit) Have you changed medications since your No No last visit? Any new allergies or adverse reactions No No Had a fall/change in ADL's that may No No increase risk of falls Signs or symptoms of abuse and/or No No neglect since last visit Have you been in the hospital since your No No last visit? Has dressing in place as prescribed No Yes Has compression in place as prescribed No N/A Has offloadiing in place as prescribed No Yes Experienced any changes in pain level or No No management Left Footwear Regular Shoe Regular Shoe Right Footwear Regular Shoe Regular Shoe Pain Scale: 0-10 Numeric Is Patient Pain Free? Yes Yes - Nurse 1 - General Ulcer Measurement Start: 10/01/21 10:54 Freq: Status: Active Protocol: Activity Type Activity Date Activity User E-Sign Co-Sign Detail Recorded Client Recorded Date Recorded By Document 10/01/21 11:23 DUNCAN [id number] 10/01/21 11:28 [place] Document 10/08/21 10:29 ANG [id number] 10/08/21 10:34 ANG 10/01/21 10/08/21 11:23 10:29 Wound Center Nurse 1 3-right buttucks cluster -Combined with other wound No No -Current Size (cm) - Length 4 0 -Current Size (cm) - Width 2 0 -Current Size (cm) - Depth 0.1 0 -Total Square Cm 8 0 -Photo Taken No Yes -Epithelialization Large 67-100% -Tunneling No -Undermining/Tunneling No -Circular Undermining No -Classification - Thickness Partial Thickness -Change in Wound Grade/Stage No -Exudate Amt Medium -Exudate Type Serosanguineous -Wound Margin Distinct, Outline Attached -Granulation Amt None Present (0 %) -Granulation Quality N/A -Slough/Fibrin No -Necrosis Amt None Present (0 %) -Structure Exposed N/A -Texture (Sophia-wound Skin Appearance) No Abnormality, Assessed -Moisture (Sophia-wound Skin Appearance) Assessed,Dry/ Scaly -Color (Sophia-wound Skin Appearance) No Abnormality, Assessed -Temperature (Sophia-wound Skin No Abnormality Appearance) (Pt Warm) -Tenderness on Palpation (Sophia-wound No Skin Appearance) -Ulcer Cleansing Rinsed/ Irrigated with Saline -Foul Odor after Cleansing No -Anesthetic Used 4% Lidocaine Solution -Wound Comment(s) shearing #2 Left Buttocks -Combined with other wound No No -Current Size (cm) - Length 1 0 -Current Size (cm) - Width 0.5 0 -Current Size (cm) - Depth 0.1 0 -Total Square Cm 0.5 0 -Photo Taken No -Epithelialization None Present Large 67-100% -Tunneling No -Undermining/Tunneling No -Circular Undermining No -Change in Wound Grade/Stage No -Exudate Amt Medium -Exudate Type Serosanguineous -Wound Margin Distinct, Outline Attached -Granulation Amt None Present (0 %) -Granulation Quality N/A -Slough/Fibrin No -Necrosis Amt None Present (0 %) -Structure Exposed N/A -Texture (Sophia-wound Skin Appearance) No Abnormality, Assessed -Moisture (Sophia-wound Skin Appearance) Assessed,Dry/ Scaly -Color (Sophia-wound Skin Appearance) No Abnormality, Assessed -Temperature (Sophia-wound Skin No Abnormality Appearance) (Pt Warm) -Tenderness on Palpation (Sophia-wound No Skin Appearance) -Ulcer Cleansing Rinsed/ Irrigated with Saline -Foul Odor after Cleansing No -Anesthetic Used 4% Lidocaine Solution -Wound Comment(s) shearing Lower Limb Edema Present NA - Nurse 2 - General Ulcer CM Notes Start: 10/01/21 10:54 Freq: Status: Active Protocol: Activity Type Activity Date Activity User E-Sign Co-Sign Detail Recorded Client Recorded Date Recorded By Document 10/01/21 10:54 [id number] 10/01/21 10:59 Document 10/08/21 11:28 PL [id number] 10/08/21 11:29 PL 10/01/21 10/08/21 10:54 11:28 Wound Center Nurse 2 3-right buttucks cluster -Time 10:58 -Correct Patient Yes -Correct Side, Site, Position Yes -Correct Procedure Yes -Procedure Performed Yes No -Type of Procedure Debridement -Clinical Debridement Subcutaneous -Tissue Removed Subcutaneous -Post Debridement (cm) - Length 4.2 -Post Debridement (cm) - Width 2.3 -Post Debridement (cm) - Depth 0.1 -Total Square (Post) (cm) 9.66 -Area of Debridement (cm) - Length 4.2 -Area of Debridement (cm) - Width 2.3 -Total Square (Area) (cm) 9.66 -Tunneling No -Undermining/Tunneling No -Circular Undermining No -Wound/Ulcer Outcome Not Healed Healed- Epithelialized -Ulcer Cleansing Rinsed/ Irrigated with Saline -Foul Odor after Cleansing No -Bioengineered Tissue No -Bleeding Controlled with Pressure -Treatment Response Procedure Tolerated Well -Offloading No -Debridement - Subq, 1st 20sq cm Yes #2 Left Buttocks -Time 10:55 -Correct Patient Yes -Correct Side, Site, Position Yes -Correct Procedure Yes -Procedure Performed Yes No -Type of Procedure Debridement -Clinical Debridement Subcutaneous -Tissue Removed Subcutaneous -Post Debridement (cm) - Length 2.5 -Post Debridement (cm) - Width 0.9 -Post Debridement (cm) - Depth 0.1 -Total Square (Post) (cm) 2.25 -Area of Debridement (cm) - Length 2.5 -Area of Debridement (cm) - Width 0.9 -Total Square (Area) (cm) 2.25 -Tunneling No -Undermining/Tunneling No -Circular Undermining No -Wound/Ulcer Outcome Not Healed Healed- Epithelialized -Ulcer Cleansing Rinsed/ Irrigated with Saline -Foul Odor after Cleansing No -Bioengineered Tissue No -Bleeding Controlled with Pressure -Treatment Response Procedure Tolerated Well -Offloading No -Debridement - Subq, 1st 20sq cm No Pain Scale: 0-10 Numeric Is Patient Pain Free? Yes Yes - Nurse 3 - General Ulcer D/C NN Start: 10/01/21 10:54 Freq: Status: Active Protocol: Activity Type Activity Date Activity User E-Sign Co-Sign Detail Recorded Client Recorded Date Recorded By Document 10/01/21 11:23 DUNCAN [id number] 10/01/21 11:28 [place] Document 10/08/21 11:40 DUNCAN [id number] 10/08/21 11:42 AK 10/01/21 10/08/21 11:23 11:40 Vital Signs Temperature (97.8 F-99.1 F) 96.9 F L Temperature Source Temporal Pulse Rate (60-100) 69 Pulse Location Monitor Blood Pressure (90/60-120/80) 163/74 H Blood Pressure Mean (mm Hg) 103 Source Monitor Pain Scale: 0-10 Numeric Is Patient Pain Free? Yes Yes Wound Care Nurse 3 3-right buttucks cluster -Ulcer Cleansing Rinsed/ Irrigated with Saline -Foul Odor after Cleansing No -Negative Pressure Wound Therapy N/A -Other Dressing bacatracin & butterfly dressing #2 Left Buttocks -Ulcer Cleansing Rinsed/ Irrigated with Saline -Foul Odor after Cleansing No -Negative Pressure Wound Therapy N/A -Other Covering bacatracin & butterfly dressing WC - Visit Discharge Discharge Condition Stable Stable Ambulatory Status Ambulatory Ambulatory Transportation Private Auto Private Auto Accompanied by son Medication Reconcilliation completed & Yes Yes provided to patient/care provider Clinical Summary of Care Provided Yes Yes 10/08/21 11:42 Wound Center by Darion Simmons and border dressing Initialized on 10/08/21 11:42 - END OF NOTE Assessment/Plan Assessment/Plan (1) Pressure ulcer of left buttock, stage 3: CODE(S): L89.323 - Pressure ulcer of left buttock, stage 3 (2) Decubitus ulcer of right buttock, stage 3: CODE(S): L89.313 - Pressure ulcer of right buttock, stage 3 (3) Excoriation of multiple sites of buttock: CODE(S): S30.810A - Abrasion of lower back and pelvis, initial encounter QUALIFIERS: Encounter type: subsequent encounter Qualified Code(s): S30.810D - Abrasion of lower back and pelvis, subsequent encounter (4) Tear of skin of right buttock: CODE(S): S31.811A - Laceration without foreign body of right buttock, initial encounter QUALIFIERS: Encounter type: initial encounter Qualified Code(s): S31.811A - Laceration without foreign body of right buttock, initial encounter (5) Tear of skin of left buttock: CODE(S): S31.821A - Laceration without foreign body of left buttock, initial encounter QUALIFIERS: Encounter type: initial encounter Qualified Code(s): S31.821A - Laceration without foreign body of left buttock, initial encounter (6) 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, without long-term current use of insulin: CODE(S): E11.628 - Type 2 diabetes mellitus with other skin complications QUALIFIERS: Diabetes mellitus complication detail: with other skin complication Qualified Code(s): E11.628 - Type 2 diabetes mellitus with other skin complications (7) Dementia: CODE(S): F03.90 - Unspecified dementia without behavioral disturbance QUALIFIERS: Dementia type: unspecified type Dementia behavioral disturbance: with behavioral disturbance Qualified Code(s): F03.91 - Unspecified dementia with behavioral disturbance (8) Xerosis cutis: CODE(S): L85.3 - Xerosis cutis (9) Alcohol use: CODE(S): Z72.89 - Other problems related to lifestyle PLAN: The patient's bilateral buttock ulcers and skin tears are healed today, and he has no open wounds. He will be discharged from the wound healing center. As preventive measures: Using Mepilex butterfly dressing to the sacrum for the next week to pad and protect the sacrum and alleviate friction. Avoid prolonged sitting and pressure/friction against the sacrum/buttocks. Frequent ambulation is encouraged. Follow-up: Return to the wound healing center on an as-needed basis should wounds recur or new wounds develop. Note: [employer] speech recognition manager transportation planning software was used to create portions of this document. Sound-alike and misspelled words, as well as other manager transportation planning errors may be contained in the documentation.
== END 2021-10-08 13:04 | disposition home or self-care (01) ==
LOC: WC 10:30
PROVIDERS: PCP Family Medicine; Visit Provider Nurse Practitioner Family
DX: L89.313 Pressure ulcer of right buttock, stage 3 (principal); L89.323 Pressure ulcer of left buttock, stage 3; F03.91 Unspecified dementia, unspecified severity, with behavioral disturbance; E11.628 Type 2 diabetes mellitus with other skin complications; I48.0 Paroxysmal atrial fibrillation; E78.5 Hyperlipidemia, unspecified; L85.3 Xerosis cutis; Z87.891 Personal history of nicotine dependence
CPT/HCPCS: 11042; 99213; G0463